=== PATIENT | female | born 1985 | race American Indian/Alaskan Native ===

== ENCOUNTER 2018-12-21 11:37 | Emergency (ER) | payer MEDICAID, OTHER ==
--- NOTE | 2018-12-21 11:45 | Emergency Department Report ---
Blank Doc - Documentation Documentation: 33 y/o female comes in for blood in urine, abdominal pain, left eye issues. orders have been placed.
[2018-12-21] MEDS ORDERED: TETRACAINE 0.5% OU PRN (12:49)
[2018-12-21 13:06] LABS: Bacteria,Urine 1+ /HPF (Negative); Bilirubin,Urine NEG (Negative); Blood,Urine LG (Negative); Color,Urine Amber (Yellow); Mucus,Urine 3+ /HPF
[2018-12-21 13:07] LABS: RBC,Urine > 182.0 /HPF (0.0-6.0)
[2018-12-21 13:09] LABS: Basophils % (Auto) 0.6 % (0.0-1.8); Eosinophils # (Auto) 0.2 K/mm3 (0.0-0.4); Eosinophils % (Auto) 3.3 % (0.0-4.3); Hematocrit 35.7 % (30.3-42.9); Hemoglobin 11.6 gm/dl (10.1-14.3); Lymphocytes # (Auto) 2.8 K/mm3 (1.2-5.4); Lymphocytes % (Auto) 37.7 % (13.4-35.0); Mean Corpuscular HGB Conc 33 % (30-34); Mean Corpuscular Volume 82 fl (79-97); Monocytes # (Auto) 0.5 K/mm3 (0.0-0.8); Monocytes % (Auto) 6.5 % (0.0-7.3); Platelet Count 344 K/mm3 (140-440); Red Blood Count 4.33 M/mm3 (3.65-5.03); Red Cell Distribution Width 16.5 % (13.2-15.2)
[2018-12-21 13:09] LABS: HCG Qualitative,Urine Negative (Negative)
[2018-12-21 13:14] LABS: Alanine Aminotransferase 20 units/L (7-56); Albumin 3.5 g/dL (3.9-5); BUN/Creatinine Ratio 9; Blood Urea Nitrogen 6 mg/dL (7-17); Calcium 8.8 mg/dL (8.4-10.2); Hemolysis Index 6
--- NOTE | 2018-12-21 13:14 | Emergency Department Report ---
ED General Adult HPI - General Chief complaint: Urogenital-Female Stated complaint: BLOOD IN URINE/COUGH/LEFT EYE PAIN Time Seen by Provider: 12/21/18 12:08 Source: patient Mode of arrival: Ambulatory Limitations: No Limitations - History of Present Illness Initial comments: Patient presents to the emergency department with multiple chief complaints. P atient complains of left eye burning with tearing. Patient also complains of abdominal pain and a dry cough for the last 2 weeks. Patient's abdominal pain started 3 days ago. Patient denies any nausea or vomiting. Patient also denies diarrhea. -: Gradual Location: abdomen Radiation: non-radiation Severity scale (0 -10): 3 Quality: aching Consistency: constant Improves with: none Worsens with: none Associated Symptoms: denies other symptoms Treatments Prior to Arrival: none - Related Data Previous Rx's Medication Instructions Recorded Last Taken Type Fluconazole [Diflucan] 150 mg PO DAILY #7 tablet 08/04/18 Unknown Rx cefUROXime [Ceftin] 500 mg PO Q12H #28 tablet 08/04/18 Unknown Rx ALBUTEROL Inhaler (OR & NICU) 2 puff IH Q4HR PRN #1 inhalation 12/21/18 Unknown Rx [ProAir HFA Inhaler] HYDROcodone/APAP 5-325 [[place] 1 each PO Q6HR PRN #12 tablet 12/21/18 Unknown Rx 5/325] Polymyxin B Sulf/Trimethoprim 2 drop OP Q3HR #1 drops 12/21/18 Unknown Rx [Polytrim Eye Drops 60872kkmxa/0.1%] levoFLOXacin [Levaquin] 750 mg PO QDAY #7 tablet 12/21/18 Unknown Rx Allergies Allergy/AdvReac Type Severity Reaction Status Date / Time No Known Allergies Allergy Verified 12/21/18 16:19 ED Review of Systems ROS: Stated complaint: BLOOD IN URINE/COUGH/LEFT EYE PAIN Other details as noted in HPI Comment: All other systems reviewed and negative Constitutional: denies: chills, fever Eyes: eye pain. denies: eye discharge, vision change ENT: denies: ear pain, throat pain Respiratory: cough. denies: shortness of breath, wheezing Cardiovascular: denies: chest pain, palpitations Endocrine: no symptoms reported Gastrointestinal: abdominal pain. denies: nausea, diarrhea Genitourinary: denies: urgency, dysuria, discharge Musculoskeletal: denies: back pain, joint swelling, arthralgia Skin: denies: rash, lesions Neurological: denies: headache, weakness, paresthesias Psychiatric: denies: anxiety, depression Hematological/Lymphatic: denies: easy bleeding, easy bruising ED Past Medical Hx - Past Medical History Previous Medical History?: No Additional medical history: obese - Surgical History Past Surgical History?: No - Social History Smoking Status: Current Every Day Smoker Substance Use Type: None - Medications Home Medications: Home Medications Medication Instructions Recorded Confirmed Last Taken Type Fluconazole [Diflucan] 150 mg PO DAILY #7 tablet 08/04/18 Unknown Rx cefUROXime [Ceftin] 500 mg PO Q12H #28 tablet 08/04/18 Unknown Rx ALBUTEROL Inhaler (OR & NICU) 2 puff IH Q4HR PRN #1 inhalation 12/21/18 Unknown Rx [ProAir HFA Inhaler] HYDROcodone/APAP 5-325 [[place] 1 each PO Q6HR PRN #12 tablet 12/21/18 Unknown Rx 5/325] Polymyxin B Sulf/Trimethoprim 2 drop OP Q3HR #1 drops 12/21/18 Unknown Rx [Polytrim Eye Drops 29622lgemx/0.1%] levoFLOXacin [Levaquin] 750 mg PO QDAY #7 tablet 12/21/18 Unknown Rx ED Physical Exam - General Limitations: No Limitations General appearance: alert, in no apparent distress - Head Head exam: Present: atraumatic, normocephalic - Eye Eye exam: Present: normal appearance, PERRL, EOMI, other (left corneal abrasion) - ENT ENT exam: Present: mucous membranes moist - Neck Neck exam: Present: normal inspection - Respiratory Respiratory exam: Present: wheezes. Absent: respiratory distress - Cardiovascular Cardiovascular Exam: Present: regular rate, normal rhythm. Absent: systolic murmur, diastolic murmur, rubs, gallop - GI/Abdominal GI/Abdominal exam: Present: soft, normal bowel sounds. Absent: distended, tenderness - Extremities Exam Extremities exam: Present: normal inspection - Back Exam Back exam: Present: normal inspection - Neurological Exam Neurological exam: Present: alert, oriented X3, CN II-XII intact. Absent: motor sensory deficit - Psychiatric Psychiatric exam: Present: normal affect, normal mood - Skin Skin exam: Present: warm, dry, intact, normal color. Absent: rash ED Course Vital Signs 12/21/18 12/21/18 12/21/18 11:44 12:03 14:06 Temperature 97.9 F 98.2 F Pulse Rate 116 H 101 H Respiratory 20 18 19 Rate Blood Pressure 133/97 Blood Pressure 141/82 [Right] O2 Sat by Pulse 96 100 Oximetry ED Medical Decision Making - Lab Data Result diagrams: 12/21/18 12:51 12/21/18 12:51 Lab Results 12/21/18 12/21/18 12/21/18 Range/Units 12:39 12:51 12:51 WBC 7.3 (4.5-11.0) K/mm3 RBC 4.33 (3.65-5.03) M/mm3 Hgb 11.6 (10.1-14.3) gm/dl Hct 35.7 (30.3-42.9) % MCV 82 (79-97) fl MCH 27 L (28-32) pg MCHC 33 (30-34) % RDW 16.5 H (13.2-15.2) % Plt Count 344 (140-440) K/mm3 Lymph % (Auto) 37.7 H (13.4-35.0) % [place] % (Auto) 6.5 (0.0-7.3) % Eos % (Auto) 3.3 (0.0-4.3) % Baso % (Auto) 0.6 (0.0-1.8) % Lymph # 2.8 (1.2-5.4) K/mm3 [place] # 0.5 (0.0-0.8) K/mm3 Eos # 0.2 (0.0-0.4) K/mm3 Baso # 0.0 (0.0-0.1) K/mm3 Seg Neutrophils % 51.9 (40.0-70.0) % Seg Neutrophils # 3.8 (1.8-7.7) K/mm3 Sodium 142 (137-145) mmol/L Potassium 4.2 (3.6-5.0) mmol/L Chloride 105.6 (98-107) mmol/L Carbon Dioxide 26 (22-30) mmol/L Anion Gap 15 mmol/L BUN 6 L (7-17) mg/dL Creatinine 0.7 (0.7-1.2) mg/dL Estimated GFR > 60 ml/min BUN/Creatinine Ratio 9 % Glucose 164 H (65-100) mg/dL Calcium 8.8 (8.4-10.2) mg/dL Total Bilirubin 0.20 (0.1-1.2) mg/dL AST 21 (5-40) units/L ALT 20 (7-56) units/L Alkaline Phosphatase 94 (35-129) units/L Total Protein 6.8 (6.3-8.2) g/dL Albumin 3.5 L (3.9-5) g/dL Albumin/Globulin Ratio 1.1 % Lipase 21 (13-60) units/L Urine Color Annamarie (Yellow) Urine Turbidity Cloudy (Clear) Urine pH 5.0 (5.0-7.0) Ur Specific [place] 1.031 H (1.003-1.030) Urine Protein 100 mg/dl (Negative) mg/dL Urine Glucose (UA) 50 (Negative) mg/dL Urine Ketones Neg (Negative) mg/dL Urine Blood Lg (Negative) Urine Nitrite Neg (Negative) Urine Bilirubin Neg (Negative) Urine Urobilinogen 2.0 (<2.0) mg/dL Ur Leukocyte Esterase Mod (Negative) Urine WBC (Auto) 49.0 H (0.0-6.0) /HPF Urine RBC (Auto) > 182.0 (0.0-6.0) /HPF U Epithel Cells (Auto) 60.0 H (0-13.0) /HPF Urine Bacteria (Auto) 1+ (Negative) /HPF Urine Mucus 3+ /HPF Urine HCG, Qual Negative (Negative) - Radiology Data Radiology results: report reviewed - Medical Decision Making results discussed with patient Critical care attestation.: If time is entered above; I have spent that time in minutes in the direct care of this critically ill patient, excluding procedure time. ED Disposition Clinical Impression: Corneal abrasion Disposition: DC-01 TO HOME OR SELFCARE Is pt being admited?: No Does the pt Need Aspirin: No Condition: Stable Instructions: Corneal Abrasion (ED), Acute Bronchitis (ED), Urinary Tract Infection in Women (ED) Additional Instructions: return if worse Prescriptions: Polymyxin B Sulf/Trimethoprim [Polytrim Eye Drops 29233zhwmi/0.1%] 2 drop OP Q3HR #1 drops Referrals: PRIMARY CARE, [Referring] - 3-5 Days Time of Disposition: 16:20
[2018-12-21 14:07] VITALS: BP 141/82
--- NOTE | 2018-12-21 14:51 | XRay Report ---
Single view chest: History: Cough. Findings: Cardiomegaly. Trachea is midline. Mild pulmonary venous congestion. No consolidation or pleural effusion. Impression: Cardiomegaly with mild pulmonary venous congestion.
[2018-12-21] MEDS ORDERED: NORCO 10/325 PO ONE (16:12)
[2018-12-21] MEDS ORDERED: ZOFRAN ODT PO ONE (16:12)
[2018-12-21] MEDS ORDERED: ZOFRAN ODT ONE (16:15)
[2018-12-21] MEDS ORDERED: NORCO 10/325 ONE (16:15)
== END 2018-12-21 17:05 | disposition home or self-care (01) ==
LOC: ED 11:37
DX: S05.02XA Injury of conjunctiva and corneal abrasion without foreign body, left eye, initial encounter (principal); F17.200 Nicotine dependence, unspecified, uncomplicated; X58.XXXA Exposure to other specified factors, initial encounter; Y93.89 Activity, other specified; Y92.89 Other specified places as the place of occurrence of the external cause; Y99.8 Other external cause status
CPT/HCPCS: 36415; 71045; 80053; 81001; 81025; 83690; 85025; Q0162

== ENCOUNTER 2019-08-26 05:42 | Emergency (ER) | payer SELFPAY ==
[2019-08-26 06:58] LABS: Bilirubin,Urine NEG (Negative); Blood,Urine LG (Negative); Color,Urine Straw (Yellow); Protein,Urine <15 mg/dL mg/dL (Negative); Urobilinogen,Urine < 2.0 mg/dL (<2.0)
[2019-08-26 07:01] LABS: HCG Qualitative,Urine Negative (Negative)
--- NOTE | 2019-08-26 07:36 | Emergency Department Report ---
ED Female HPI - General Chief complaint: Allergic Reaction Stated complaint: POSS ALLERGIC REACTION/VAGINAL PAIN Time Seen by Provider: 08/26/19 07:14 Source: patient Mode of arrival: Ambulatory Limitations: No Limitations - History of Present Illness Initial comments: patient is a 34-year-old female presents emergency room with complaints of vaginal itching and dryness that began a few days ago. She has associated vaginal irritation and dysuria. Patient was evaluated in the emergency department on 08/20/19 and diagnosed with UTI and given a prescription for Bactrim. She had a wet prep performed which was negative. Her G/C swabs were also negative. She denies any fever, nausea, vomiting, abdominal pain. - Related Data Previous Rx's Medication Instructions Recorded Last Taken Type Fluconazole [Diflucan] 150 mg PO DAILY #7 tablet 08/04/18 Unknown Rx cefUROXime [Ceftin] 500 mg PO Q12H #28 tablet 08/04/18 Unknown Rx ALBUTEROL Inhaler (OR & NICU) 2 puff IH Q4HR PRN #1 inhalation 12/21/18 Unknown Rx [ProAir HFA Inhaler] HYDROcodone/APAP 5-325 [[place] 1 each PO Q6HR PRN #12 tablet 12/21/18 Unknown Rx 5/325] Polymyxin B Sulf/Trimethoprim 2 drop OP Q3HR #1 drops 12/21/18 Unknown Rx [Polytrim Eye Drops 66063xpbbm/0.1%] levoFLOXacin [Levaquin] 750 mg PO QDAY #7 tablet 12/21/18 Unknown Rx Sulfamethoxazole/Trimethoprim 1 each PO BID #14 tablet 08/20/19 Unknown Rx [Bactrim DS TAB] Fluconazole [Diflucan TAB] 150 mg PO ONCE #1 tablet 08/26/19 Unknown Rx Miconazole 2% [Monistat-Derm] 1 applicatio TP BID #1 tube 08/26/19 Unknown Rx cephALEXin [Keflex] 500 mg PO BID 7 Days #14 cap 08/26/19 Unknown Rx Allergies Allergy/AdvReac Type Severity Reaction Status Date / Time No Known Allergies Allergy Verified 12/21/18 16:19 ED Review of Systems ROS: Stated complaint: POSS ALLERGIC REACTION/VAGINAL PAIN Other details as noted in HPI Comment: All other systems reviewed and negative ED Past Medical Hx - Past Medical History Previous Medical History?: Yes Hx Diabetes: Yes Additional medical history: obese - Surgical History Past Surgical History?: No - Social History Smoking Status: Current Every Day Smoker - Medications Home Medications: Home Medications Medication Instructions Recorded Confirmed Last Taken Type Fluconazole [Diflucan] 150 mg PO DAILY #7 tablet 08/04/18 Unknown Rx cefUROXime [Ceftin] 500 mg PO Q12H #28 tablet 08/04/18 Unknown Rx ALBUTEROL Inhaler (OR & NICU) 2 puff IH Q4HR PRN #1 inhalation 12/21/18 Unknown Rx [ProAir HFA Inhaler] HYDROcodone/APAP 5-325 [[place] 1 each PO Q6HR PRN #12 tablet 12/21/18 Unknown Rx 5/325] Polymyxin B Sulf/Trimethoprim 2 drop OP Q3HR #1 drops 12/21/18 Unknown Rx [Polytrim Eye Drops 37080eqcma/0.1%] levoFLOXacin [Levaquin] 750 mg PO QDAY #7 tablet 12/21/18 Unknown Rx Sulfamethoxazole/Trimethoprim 1 each PO BID #14 tablet 08/20/19 Unknown Rx [Bactrim DS TAB] Fluconazole [Diflucan TAB] 150 mg PO ONCE #1 tablet 08/26/19 Unknown Rx Miconazole 2% [Monistat-Derm] 1 applicatio TP BID #1 tube 08/26/19 Unknown Rx cephALEXin [Keflex] 500 mg PO BID 7 Days #14 cap 08/26/19 Unknown Rx ED Physical Exam - General Limitations: No Limitations General appearance: alert, in no apparent distress - Head Head exam: Present: atraumatic, normocephalic - Eye Eye exam: Present: normal appearance - ENT ENT exam: Present: mucous membranes moist - Respiratory Respiratory exam: Present: normal lung sounds bilaterally. Absent: respiratory distress, wheezes, rales, rhonchi, stridor, chest wall tenderness, accessory muscle use, decreased breath sounds, prolonged expiratory - Cardiovascular Cardiovascular Exam: Present: regular rate, normal rhythm, normal heart sounds. Absent: systolic murmur, diastolic murmur, rubs, gallop - GI/Abdominal GI/Abdominal exam: Present: soft, normal bowel sounds. Absent: distended, tenderness, guarding, rebound, rigid - Back Exam Back exam: Present: CVA tenderness (L). Absent: CVA tenderness (R) - Neurological Exam Neurological exam: Present: alert, oriented X3 - Psychiatric Psychiatric exam: Present: normal affect, normal mood - Skin Skin exam: Present: warm, dry, intact ED Course Vital Signs 08/26/19 08/26/19 05:46 07:52 Temperature 97.8 F 98.5 F Pulse Rate 116 H 97 H Respiratory 18 16 Rate Blood Pressure 149/95 Blood Pressure 156/101 [Left] O2 Sat by Pulse 97 99 Oximetry ED Medical Decision Making - Lab Data Lab Results 08/26/19 Range/Units 06:30 Urine Color Straw (Yellow) Urine Turbidity Clear (Clear) Urine pH 6.0 (5.0-7.0) Ur Specific [place] 1.032 H (1.003-1.030) Urine Protein <15 mg/dl (Negative) mg/dL Urine Glucose (UA) >=500 (Negative) mg/dL Urine Ketones Neg (Negative) mg/dL Urine Blood Lg (Negative) Urine Nitrite Neg (Negative) Urine Bilirubin Neg (Negative) Urine Urobilinogen < 2.0 (<2.0) mg/dL Ur Leukocyte Esterase Sm (Negative) Urine WBC (Auto) 12.0 H (0.0-6.0) /HPF Urine RBC (Auto) 35.0 (0.0-6.0) /HPF U Epithel Cells (Auto) 4.0 (0-13.0) /HPF Urine HCG, Qual Negative (Negative) - Medical Decision Making patient is a 34-year-old female presents emergency room with complaints of vaginal itching and dryness that began a few days ago. She has associated vaginal irritation and dysuria. Patient was evaluated in the emergency department on 08/20/19 and diagnosed with UTI and given a prescription for Bactrim. She had a wet prep performed which was negative. Her G/C swabs were also negative. She denies any fever, nausea, vomiting, abdominal pain. initial vitals with elevated HR which improved upon repeat. pts UA continues to have evidence of UTI, will change patients bactrim to keflex. pt most likely has yeast infection secondary to recent abx use. will give pt fluconazole pill and miconazole ointment. advised patient to please use medication as prescribed. Stop taking the Bactrim and began taking Keflex. If the yeast pill does not work repeat in 3 days. increase your water intake. May take probiotics or eat yogurt. Follow up with her [facility] CH[facility] SCIENTIST in the next 2-3 days for reexamination. Return to the emergency room for any new or worsening symptoms. upon discharge, pts blood pressure mildly elevated, pt given [facility] to fol low up with a PCP, discussed to take her bp three times a day, eat a low sodium diet, incorporate daily exercise and increase water intake. - Differential Diagnosis UTI, yeast, BV, vaginitis Critical care attestation.: If time is entered above; I have spent that time in minutes in the direct care of this critically ill patient, excluding procedure time. ED Disposition Clinical Impression: UTI (urinary tract infection) Qualifiers: Urinary tract infection type: acute cystitis Hematuria presence: with hematuria Qualified Code(s): N30.01 - Acute cystitis with hematuria Vaginitis Qualifiers: Chronicity: acute Qualified Code(s): N76.0 - Acute vaginitis Disposition: TO HOME OR SELFCARE Is pt being admited?: No Does the pt Need Aspirin: No Condition: Stable Instructions: Urinary Tract Infection in Women (ED), Vaginitis (ED) Additional Instructions: please use medication as prescribed. Stop taking the Bactrim and began taking Keflex. If the yeast pill does not work repeat in 3 days. increase your water intake. May take probiotics or eat yogurt. Follow up with her [facility] ANALYTICS CHIEF SCIENTIST in the next 2-3 days for reexamination. Return to the emergency room for any new or worsening symptoms. Prescriptions: Fluconazole [Diflucan TAB] 150 mg PO ONCE #1 tablet cephALEXin [Keflex] 500 mg PO BID 7 Days #14 cap Miconazole 2% [Monistat-Derm] 1 applicatio TP BID #1 tube Referrals: [facility] [Outside] - 2-3 Days [facility] [Provider Group] - 2-3 Days [facility] [Provider Group] - 2-3 Days Time of Disposition: 07:37 Print Language: GIBRALTARIAN
[2019-08-26 07:53] VITALS: BP 156/101
== END 2019-08-26 07:54 | disposition home or self-care (01) ==
LOC: ED 05:42
DX: N76.0 Acute vaginitis (principal); N39.0 Urinary tract infection, site not specified; E11.9 Type 2 diabetes mellitus without complications; F17.200 Nicotine dependence, unspecified, uncomplicated; Z79.899 Other long term (current) drug therapy
CPT/HCPCS: 81001; 81025; 87086

== ENCOUNTER 2019-09-19 18:09 | Emergency (ER) | payer SELFPAY ==
[2019-09-19 18:29] VITALS: BP 149/95
--- NOTE | 2019-09-19 18:37 | Emergency Department Report ---
Blank Doc - Documentation Documentation: 34-year-old female that presents with uncontrolled hyperglycemia. This initial assessment/diagnostic orders/clinical plan/treatment(s) is/are subject to change based on patient's health status, clinical progression and re- assessment by fellow clinical providers in the ED. Further treatment and workup at subsequent clinical providers discretion. Patient/guardians urged not to elope from the ED as their condition may be serious if not clinically assessed and managed. Initial orders include: 1- Patient sent to [facility] for further evaluation and treatment 2- labs 3- UA
[2019-09-19 19:04] LABS: Basophils # (Auto) 0.1 K/mm3 (0.0-0.1); Basophils % (Auto) 0.9 % (0.0-1.8); Eosinophils # (Auto) 0.2 K/mm3 (0.0-0.4); Eosinophils % (Auto) 1.6 % (0.0-4.3); Hematocrit 38.2 % (30.3-42.9); Hemoglobin 12.8 gm/dl (10.1-14.3); Lymphocytes # (Auto) 3.5 K/mm3 (1.2-5.4); Lymphocytes % (Auto) 32.1 % (13.4-35.0); Mean Corpuscular HGB Conc 34 % (30-34); Mean Corpuscular Volume 82 fl (79-97); Monocytes # (Auto) 0.6 K/mm3 (0.0-0.8); Monocytes % (Auto) 5.1 % (0.0-7.3); Platelet Count 338 K/mm3 (140-440); Red Blood Count 4.67 M/mm3 (3.65-5.03); Red Cell Distribution Width 16.2 % (13.2-15.2)
[2019-09-19 19:12] LABS: BUN/Creatinine Ratio 15; Blood Urea Nitrogen 9 mg/dL (7-17); Calcium 9.8 mg/dL (8.4-10.2); Hemolysis Index 10
--- NOTE | 2019-09-19 20:03 | Emergency Department Report ---
ED General Adult HPI - General Chief complaint: Hyperglycemia Stated complaint: SUGAR 440, RASH Time Seen by Provider: 09/19/19 18:38 Source: patient Mode of arrival: Ambulatory Limitations: No Limitations - History of Present Illness Initial comments: 34-year-old morbidly obese female presents to the emergency room complaining of hyperglycemia and rash. Patient states that her finger stick at home was 440. Patient reports that she is on metformin and insulin once a week through a diabetic study. Patient currently does not have a primary care provider. Patient reports that her rash is located in her groin area itches very bad. Patient states that she has area of skin that has sloughed off and gets irritated when she urinates. She is currently homeless and reports she does not have much means to eat a healthy diet or able to prepare her own food. Patient does report she has an appointment with Dr. Roldan Schwartz on Tuesday. She was seen here in 08/26/2019 for the same complaint. Patient's blood sugar in triage was 290. Onset/Timin -: month(s) Location: genitals Quality: burning Consistency: constant Improves with: none Worsens with: other (urinating) Associated Symptoms: denies other symptoms - Related Data Previous Rx's Medication Instructions Recorded Last Taken Type Fluconazole [Diflucan] 150 mg PO DAILY #7 tablet 08/04/18 Unknown Rx cefUROXime [Ceftin] 500 mg PO Q12H #28 tablet 08/04/18 Unknown Rx Albuterol INH(or & Nicu Only) 2 puff IH Q4HR PRN #1 inhalation 12/21/18 Unknown Rx [ProAir HFA Inhaler] HYDROcodone/APAP 5-325 [[place] 1 each PO Q6HR PRN #12 tablet 12/21/18 Unknown Rx 5/325] Polymyxin B Sulf/Trimethoprim 2 drop OP Q3HR #1 drops 12/21/18 Unknown Rx [Polytrim Eye Drops 13250xiwsd/0.1%] levoFLOXacin [Levaquin] 750 mg PO QDAY #7 tablet 12/21/18 Unknown Rx Sulfamethoxazole/Trimethoprim 1 each PO BID #14 tablet 08/20/19 Unknown Rx [Bactrim DS TAB] Fluconazole [Diflucan TAB] 150 mg PO ONCE #1 tablet 08/26/19 Unknown Rx Miconazole 2% [Monistat-Derm] 1 applicatio TP BID #1 tube 08/26/19 Unknown Rx cephALEXin [Keflex] 500 mg PO BID 7 Days #14 cap 08/26/19 Unknown Rx Fluconazole [Diflucan TAB] 200 mg PO QDAY #3 tablet 09/19/19 Unknown Rx Nystatin [Nystop Powder] 1 applicatio TP TID #2 bottle 09/19/19 Unknown Rx Allergies Allergy/AdvReac Type Severity Reaction Status Date / Time No Known Allergies Allergy Verified 12/21/18 16:19 ED Review of Systems ROS: Stated complaint: SUGAR 440, RASH Other details as noted in HPI ED Past Medical Hx - Past Medical History Previous Medical History?: Yes Hx Diabetes: Yes Additional medical history: obese - Surgical History Past Surgical History?: No - Social History Smoking Status: Never Smoker Substance Use Type: None - Medications Home Medications: Home Medications Medication Instructions Recorded Confirmed Last Taken Type Fluconazole [Diflucan] 150 mg PO DAILY #7 tablet 08/04/18 Unknown Rx cefUROXime [Ceftin] 500 mg PO Q12H #28 tablet 08/04/18 Unknown Rx Albuterol INH(or & Nicu Only) 2 puff IH Q4HR PRN #1 inhalation 12/21/18 Unknown Rx [ProAir HFA Inhaler] HYDROcodone/APAP 5-325 [[place] 1 each PO Q6HR PRN #12 tablet 12/21/18 Unknown Rx 5/325] Polymyxin B Sulf/Trimethoprim 2 drop OP Q3HR #1 drops 12/21/18 Unknown Rx [Polytrim Eye Drops 96075kshvn/0.1%] levoFLOXacin [Levaquin] 750 mg PO QDAY #7 tablet 12/21/18 Unknown Rx Sulfamethoxazole/Trimethoprim 1 each PO BID #14 tablet 08/20/19 Unknown Rx [Bactrim DS TAB] Fluconazole [Diflucan TAB] 150 mg PO ONCE #1 tablet 08/26/19 Unknown Rx Miconazole 2% [Monistat-Derm] 1 applicatio TP BID #1 tube 08/26/19 Unknown Rx cephALEXin [Keflex] 500 mg PO BID 7 Days #14 cap 08/26/19 Unknown Rx Fluconazole [Diflucan TAB] 200 mg PO QDAY #3 tablet 09/19/19 Unknown Rx Nystatin [Nystop Powder] 1 applicatio TP TID #2 bottle 09/19/19 Unknown Rx ED Physical Exam - General Limitations: No Limitations General appearance: alert, in no apparent distress, obese - Head Head exam: Present: atraumatic, normocephalic - Eye Eye exam: Present: normal appearance - ENT ENT exam: Present: mucous membranes moist - Neck Neck exam: Present: normal inspection - Respiratory Respiratory exam: Present: normal lung sounds bilaterally. Absent: respiratory distress - Cardiovascular Cardiovascular Exam: Present: regular rate, normal rhythm. Absent: systolic murmur, diastolic murmur, rubs, gallop - External exam: Present: erythema - Neurological Exam Neurological exam: Present: alert, oriented X3 - Psychiatric Psychiatric exam: Present: normal affect, normal mood - Skin Skin exam: Present: rash - Expanded Skin Exam Expanded Distribution of rash: genitals Description of rash: Present: tenderness, erythematous ED Course Vital Signs 09/19/19 18:26 Temperature 98.1 F Pulse Rate 110 H Respiratory 18 Rate Blood Pressure 149/95 O2 Sat by Pulse 100 Oximetry ED Medical Decision Making - Lab Data Result diagrams: 09/19/19 18:43 09/19/19 18:43 - Medical Decision Making 34-year-old morbidly obese female presents to the emergency room complaining of hyperglycemia and rash. Patient states that her finger stick at home was 440. Patient reports that she is on metformin and insulin once a week through a diabetic study. Patient currently does not have a primary care provider. Patient reports that her rash is located in her groin area itches very bad. Patient states that she has area of skin that has sloughed off and gets irritated when she urinates. She is currently homeless and reports she does not have much means to eat a healthy diet or able to prepare her own food. Patient does report she has an appointment with Dr. Roldan Schwartz on Tuesday. She was seen here in 08/26/2019 for the same complaint. Patient's blood sugar in triage was 290. Patient will be discharged home on fluconazole 200 mg by mouth daily for 3 days and nystatin powder and a recommendation for [id number] Vagisil powder. I discussed with patient to keep her appointment with Dr. Roldan Schwartz [employer]INE [employer]. I also discussed the patient to follow up with Dr. Seaman general surgeon regarding possible bariatric surgery. And also referred patient to Dr. Engel internal medicine for chronic disease management and weight loss. Critical care attestation.: If time is entered above; I have spent that time in minutes in the direct care of this critically ill patient, excluding procedure time. ED Disposition Clinical Impression: Tinea of groin, Severely overweight Diabetes Qualifiers: Diabetes mellitus type: type 2 Diabetes mellitus intermediate frame tender insulin use: without intermediate frame tender use Diabetes mellitus complication status: with skin complications Disposition: - TO HOME OR SELFCARE Is pt being admited?: No Does the pt Need Aspirin: No Condition: Stable Instructions: Jock Itch (ED), Diabetes Mellitus Type 2 in Adults (ED) Additional Instructions: Please use [id number]-[id number] Vagisil powder to groin area to help with the moisture. Please work on eating a healthy diet and cyst with help decrease your sugar in her blood system which should get her stabilized her diabetes so he will not continue to get Yeast infections. Keep your appointment Dr. Roldan Schwartz. Please make an appointment with Dr. Knight and Dr. Seaman. Prescriptions: Fluconazole [Diflucan TAB] 200 mg PO QDAY #3 tablet Nystatin [Nystop Powder] 1 applicatio TP TID #2 bottle Referrals: PRIMARY CARE, [Primary Care Provider] - 3-5 Days MONIKA LARA MD [Staff Physician] - 3-5 Days GEOVANNA SEAMAN MD [Staff Physician] - 3-5 Days ROLDAN SCHWARTZ MD [Staff Physician] - 3-5 Days
[2019-09-19 20:34] LABS: Bilirubin,Urine NEG (Negative); Blood,Urine LG (Negative); Color,Urine Red (Yellow); RBC,Urine > 182.0 /HPF (0.0-6.0); Urobilinogen,Urine < 2.0 mg/dL (<2.0)
== END 2019-09-19 20:56 | disposition home or self-care (01) ==
LOC: ED 18:09
DX: B35.6 Tinea cruris (principal); E66.3 Overweight; E11.65 Type 2 diabetes mellitus with hyperglycemia; Z79.899 Other long term (current) drug therapy; Z79.4 Long term (current) use of insulin
CPT/HCPCS: 36415; 80048; 81001; 82805; 82962; 85025; 87086

== ENCOUNTER 2019-11-21 01:43 | Emergency (ER) | payer SELFPAY ==
[2019-11-21 01:54] VITALS: BP 135/87
--- NOTE | 2019-11-21 02:47 | Emergency Department Report ---
ED HPI - General Chief complaint: Vaginal Bleeding Stated complaint: 11WEEKS PREG,ABDOMINAL PAIN,VAGINAL BLEEDING Time Seen by Provider: 11/21/19 02:40 Source: patient Mode of arrival: Ambulatory Limitations: No Limitations - History of Present Illness Initial comments: Patient is a 34-year-old female that presents emergency room with complaints of lower abdominal cramping and vaginal bleeding. Patient states started at 11 PM tonight. Patient states that the cramping is intense. Patient states she is 11 weeks . Patient states she has not had any over the history. Patient denies chest pain or shortness of breath patient denies fever and chills. Patient states that her vaginal bleeding is heavy. Patient states it started ou t as spotting and is worsening. Patient denies recent travel. Patient denies recent international travel. Patient denies exposure to the novel coronavirus. Patient denies sick contacts. Patient denies fever and chills. Patient denies cough. Patient denies diarrhea. Patient denies coming in contact with anybody with symptoms of the novel coronavirus. MD Complaint: abdominal pain, vaginal bleeding -: Sudden Location: pelvis Radiation: none Severity: severe Severity scale (0 -10): 10 Quality: cramping Consistency: constant Improves with: rest Worsens with: movement Associated symptoms: vaginal bleeding, abdominal pain. denies: nausea/vomiting, vaginal discharge, dysuria, headache, vision changes, malaise, dysparuenia, rash, seizure, shortness of breath, syncope, weakness Vaginal bleeding: heavy :: Yes Number of weeks : 11 OB History - Previous Pregnancies: miscarriage Pre-tez care: none - Related Data : 3 Para: 0 Ab: 2 Previous Rx's Medication Instructions Recorded Last Taken Type Fluconazole [Diflucan] 150 mg PO DAILY #7 tablet 08/04/18 Unknown Rx cefUROXime [Ceftin] 500 mg PO Q12H #28 tablet 08/04/18 Unknown Rx Albuterol INH(or & Nicu Only) 2 puff IH Q4HR PRN #1 inhalation 12/21/18 Unknown Rx [ProAir HFA Inhaler] Polymyxin B Sulf/Trimethoprim 2 drop OP Q3HR #1 drops 12/21/18 Unknown Rx [Polytrim Eye Drops [id number]/0.1%] levoFLOXacin [Levaquin] 750 mg PO QDAY #7 tablet 12/21/18 Unknown Rx Sulfamethoxazole/Trimethoprim 1 each PO BID #14 tablet 08/20/19 Unknown Rx [Bactrim DS TAB] Fluconazole [Diflucan TAB] 150 mg PO ONCE #1 tablet 08/26/19 Unknown Rx Miconazole 2% [Monistat-Derm] 1 applicatio TP BID #1 tube 08/26/19 Unknown Rx cephALEXin [Keflex] 500 mg PO BID 7 Days #14 cap 08/26/19 Unknown Rx Fluconazole [Diflucan TAB] 200 mg PO QDAY #3 tablet 09/19/19 Unknown Rx Nystatin [Nystop Powder] 1 applicatio TP TID #2 bottle 09/19/19 Unknown Rx HYDROcodone/APAP 5-325 [[place] 1 each PO Q6HR PRN #8 tablet 11/21/19 Unknown Rx 5-325 mg TAB] Allergies Allergy/AdvReac Type Severity Reaction Status Date / Time No Known Allergies Allergy Verified 12/21/18 16:19 ED Review of Systems ROS: Stated complaint: 11WEEKS PREG,ABDOMINAL PAIN,VAGINAL BLEEDING Other details as noted in HPI Constitutional: denies: chills, fever Eyes: denies: eye pain, eye discharge, vision change ENT: denies: ear pain, throat pain Respiratory: denies: cough, shortness of breath, wheezing Cardiovascular: denies: chest pain, palpitations Endocrine: no symptoms reported Gastrointestinal: abdominal pain. denies: nausea, diarrhea Genitourinary: as per HPI. denies: urgency, dysuria, discharge Musculoskeletal: denies: back pain, joint swelling, arthralgia Skin: denies: rash, lesions Neurological: denies: headache, weakness, paresthesias Psychiatric: denies: anxiety, depression Hematological/Lymphatic: denies: easy bleeding, easy bruising ED Past Medical Hx - Past Medical History Previous Medical History?: Yes Hx Diabetes: Yes Additional medical history: obese. miscarriage x2 - Surgical History Past Surgical History?: No Additional Surgical History: D&C 2018 - Family History Family history: no significant - Social History Smoking Status: Current Every Day Smoker Substance Use Type: Marijuana - Medications Home Medications: Home Medications Medication Instructions Recorded Confirmed Last Taken Type Fluconazole [Diflucan] 150 mg PO DAILY #7 tablet 08/04/18 Unknown Rx cefUROXime [Ceftin] 500 mg PO Q12H #28 tablet 08/04/18 Unknown Rx Albuterol INH(or & Nicu Only) 2 puff IH Q4HR PRN #1 inhalation 12/21/18 Unknown Rx [ProAir HFA Inhaler] Polymyxin B Sulf/Trimethoprim 2 drop OP Q3HR #1 drops 12/21/18 Unknown Rx [Polytrim Eye Drops 68406zmbop/0.1%] levoFLOXacin [Levaquin] 750 mg PO QDAY #7 tablet 12/21/18 Unknown Rx Sulfamethoxazole/Trimethoprim 1 each PO BID #14 tablet 08/20/19 Unknown Rx [Bactrim DS TAB] Fluconazole [Diflucan TAB] 150 mg PO ONCE #1 tablet 08/26/19 Unknown Rx Miconazole 2% [Monistat-Derm] 1 applicatio TP BID #1 tube 08/26/19 Unknown Rx cephALEXin [Keflex] 500 mg PO BID 7 Days #14 cap 08/26/19 Unknown Rx Fluconazole [Diflucan TAB] 200 mg PO QDAY #3 tablet 09/19/19 Unknown Rx Nystatin [Nystop Powder] 1 applicatio TP TID #2 bottle 09/19/19 Unknown Rx HYDROcodone/APAP 5-325 [[place] 1 each PO Q6HR PRN #8 tablet 11/21/19 Unknown Rx 5-325 mg TAB] ED Physical Exam - General Limitations: No Limitations General appearance: alert, in no apparent distress - Head Head exam: Present: atraumatic, normocephalic - Eye Eye exam: Present: normal appearance - ENT ENT exam: Present: mucous membranes moist - Neck Neck exam: Present: normal inspection - Respiratory Respiratory exam: Present: normal lung sounds bilaterally. Absent: respiratory distress - Cardiovascular Cardiovascular Exam: Present: regular rate, normal rhythm. Absent: systolic murmur, diastolic murmur, rubs, gallop - GI/Abdominal GI/Abdominal exam: Present: soft, tenderness (Suprapubic lower abdomen), normal bowel sounds - Extremities Exam Extremities exam: Present: normal inspection - Back Exam Back exam: Present: normal inspection - Neurological Exam Neurological exam: Present: alert, oriented X3 - Psychiatric Psychiatric exam: Present: normal affect, normal mood - Skin Skin exam: Present: warm, dry, intact, normal color. Absent: rash ED Course Vital Signs 11/21/19 11/21/19 01:45 03:09 Temperature 98 F Pulse Rate 101 H Respiratory 18 20 Rate Blood Pressure 135/87 O2 Sat by Pulse 96 98 Oximetry - Reevaluation(s) Reevaluation #1: I discussed all results and clinical findings with patient. I discussed plan of care with patient. Patient agrees with plan of care. Patient is stable for discharge. Patient will be discharged home. Patient given discharge instructions. Patient voiced understanding of discharge instructions. 11/21/19 04:33 ED Medical Decision Making - Lab Data Result diagrams: 11/21/19 03:00 11/21/19 03:00 - Radiology Data Radiology results: report reviewed US OB transvaginal INDICATION / CLINICAL INFORMATION: vaginal bleed in preg. COMPARISON: None available. FINDINGS: No intrauterine is identified. The uterus is normal in size and appearance. Endometrial canal measures 11 mm. The ovaries are normal in size and appearance. IMPRESSION: No intrauterine identified US OB <= 14 weeks fetus INDICATION / CLINICAL INFORMATION: Vaginal bleeding. COMPARISON: None available. FINDINGS: No intrauterine is identified. The uterus is normal in size. Endometrial canal measures 7 mm. The ovaries were not visualized. IMPRESSION: No evidence of an intrauterine - Medical Decision Making Patient is a 34-year-old female that presents emergency room with complaints of vaginal bleeding and lower abdominal cramping. Patient stated she had a previous ultrasound confirming a IUP. Patient states she is 11 weeks . Patient had a ultrasound done here and it shows a empty uterus. Patient's hCG is negative. Patient's labs are unremarkable. Patient clinical findings are consistent with a spontaneous miscarriage. Patient has no retained products of conception. Patient's stable for discharge. Patient discharged home. Patient given discharge instructions. - Differential Diagnosis Miscarriage, vaginal bleeding, abdominal cramps Critical care attestation.: If time is entered above; I have spent that time in minutes in the direct care of this critically ill patient, excluding procedure time. ED Disposition Clinical Impression: Abdominal cramps, Miscarriage, Vaginal bleeding, Hyperglycemia Abdominal pain Qualifiers: Abdominal location: lower abdomen, unspecified Qualified Code(s): R10.30 - Lower abdominal pain, unspecified Disposition: DC-01 TO HOME OR SELFCARE Is pt being admited?: No Does the pt Need Aspirin: No Condition: Stable Instructions: Spontaneous Miscarriage (ED), Diabetic Hyperglycemia (ED) Additional Instructions: Patient to follow-up with primary care in 2 to 3 days. Patient to follow-up with MED SURG NURSE in 2 to 3 days. Patient to rest. Patient to increase water. Patient to avoid strenuous exercise or heavy lifting until cleared by MED SURG NURSE. Nothing per vagina until cleared by MED SURG NURSE. Patient to take Tylenol or ibuprofen as needed for pain. Patient to take meds as directed. Patient to return to the ER if condition worsens, changes or new symptoms arise. Patient to monitor blood sugar and take blood sugar log to follow-up appointments. Patient to eat a diabetic diet. Prescriptions: HYDROcodone/APAP 5-325 [[place] 5-325 mg TAB] 1 each PO Q6HR PRN #8 tablet PRN Reason: Pain Referrals: PRIMARY CARE, [Primary Care Provider] - 2-3 Days Time of Disposition: 04:41
--- NOTE | 2019-11-21 02:49 | Ultrasound Report ---
US OB <= 14 weeks fetus INDICATION / CLINICAL INFORMATION: Vaginal bleeding. COMPARISON: None available. FINDINGS: No intrauterine is identified. The uterus is normal in size. Endometrial canal measures 7 m m. The ovaries were not visualized. IMPRESSION: No evidence of an intrauterine Signer Name: Arun Jimenez MD FACR Signed: 11/21/2019 2:45 AM Workstation Name: [id number]
[2019-11-21 02:52] LABS: Bilirubin,Urine NEG (Negative); Blood,Urine SM (Negative); Color,Urine Straw (Yellow); Protein,Urine <15 mg/dL mg/dL (Negative); Urobilinogen,Urine < 2.0 mg/dL (<2.0)
[2019-11-21 03:30] LABS: BUN/Creatinine Ratio 11; Blood Urea Nitrogen 8 mg/dL (7-17); Calcium 9.4 mg/dL (8.4-10.2); Hemolysis Index 18
[2019-11-21 03:45] LABS: Hematocrit 41.8 % (30.3-42.9); Hemoglobin 13.5 gm/dl (10.1-14.3); Mean Corpuscular HGB Conc 32 % (30-34); Mean Corpuscular Volume 81 fl (79-97); Platelet Count 265 K/mm3 (140-440); Red Blood Count 5.14 M/mm3 (3.65-5.03); Red Cell Distribution Width 15.8 % (13.2-15.2)
[2019-11-21 03:53] LABS: Basophils # (Auto) 0.1 K/mm3 (0.0-0.1); Eosinophils # (Auto) 0.1 K/mm3 (0.0-0.4); Eosinophils % (Auto) 1.2 % (0.0-4.3); Monocytes # (Auto) 0.5 K/mm3 (0.0-0.8)
--- NOTE | 2019-11-21 04:27 | Ultrasound Report ---
US OB transvaginal INDICATION / CLINICAL INFORMATION: vaginal bleed in preg. COMPARISON: None available. FINDINGS: No intrauterine is identified. The uterus is normal in size and appearance. Endometrial can al measures 11 mm. The ovaries are normal in size and appearance. IMPRESSION: No intrauterine identified Signer Name: Arun Jimenez MD FACR Signed: 11/21/2019 4:22 AM Workstation Name: [id number]
[2019-11-21 05:50] LABS: Basophils % (Manual) 0 % (0.0-1.8); Platelet Estimate Consistent w Auto; Target Cells Few; Total Cells Counted 100
== END 2019-11-21 05:08 | disposition home or self-care (01) ==
LOC: ED 01:43
DX: O26.891 Other specified pregnancy related conditions, first trimester (principal); O03.9 Complete or unspecified spontaneous abortion without complication; O99.211 Obesity complicating pregnancy, first trimester; O24.111 Pre-existing type 2 diabetes mellitus, in pregnancy, first trimester; O99.331 Smoking (tobacco) complicating pregnancy, first trimester; R10.9 Unspecified abdominal pain; F12.90 Cannabis use, unspecified, uncomplicated; E11.65 Type 2 diabetes mellitus with hyperglycemia; Z79.899 Other long term (current) drug therapy; Z68.44 Body mass index [BMI] 60.0-69.9, adult; Z3A.11 11 weeks gestation of pregnancy
CPT/HCPCS: 36415; 76801; 76817; 80048; 81001; 84702; 85007; 85025; 86900; 86901

== ENCOUNTER 2020-09-11 22:44 | Emergency (ER) | payer SELFPAY ==
[2020-09-12 00:12] VITALS: BP 120/74
[2020-09-12] MEDS ORDERED: SODIUM CHLORIDE 0.9% 1000 ML 1,000 ML IV ONE (02:08)
--- NOTE | 2020-09-12 02:08 | Emergency Department Report ---
ED General Adult HPI - General Chief complaint: Hyperglycemia Stated complaint: HIGH BLOOD SUGAR/DIABETIC/CANT SMELL/DIZZY PUI?: No Time Seen by Provider: 09/12/20 01:54 Source: patient Mode of arrival: Ambulatory Limitations: No Limitations - History of Present Illness Initial comments: Patient is a 35-year-old female that presents emergency room with complaints of blurry vision, headache, elevated blood sugar. Patient states her blood sugars been going on for about a week. Patient states that her blurry vision headaches been going on for 2 days. Patient states she has a loss of smell for 2 days. Patient denies cough. Patient denies fever and chills. Patient states her primary care which is [facility] put her on a new diabetes medication is not working. Patient states that they recently changed her Metformin. Patient states she is taking 500 mg twice a day of Metformin. Patient denies chest pain shortness of breath. Patient denies abdominal pain. Patient denies dysuria. Patient denies fever and chills. Patient denies recent travel. Patient denies recent international travel. Patient denies exposure to the novel coronavirus. Patient denies sick contacts. Patient denies fever and chills. Patient denies cough. Patient denies diarrhea. Patient denies coming in contact with anybody with symptoms of the novel coronavirus. -: Sudden Improves with: rest Worsens with: eating, movement Associated Symptoms: headaches. denies: confusion, chest pain, cough, diaphoresis, fever/chills, loss of appetite, malaise, nausea/vomiting, rash, seizure, shortness of breath, syncope, weakness - Related Data Previous Rx's Medication Instructions Recorded Last Taken Type Fluconazole [Diflucan] 150 mg PO DAILY #7 tablet 08/04/18 Unknown Rx cefUROXime [Ceftin] 500 mg PO Q12H #28 tablet 08/04/18 Unknown Rx Albuterol Mdi (or & Nicu Only) 2 puff IH Q4HR PRN #1 inhalation 12/21/18 Unknown Rx [ProAir HFA Inhaler] Polymyxin B Sulf/Trimethoprim 2 drop OP Q3HR #1 drops 12/21/18 Unknown Rx [Polytrim Eye Drops 25391jriwy/0.1%] levoFLOXacin [Levaquin] 750 mg PO QDAY #7 tablet 12/21/18 Unknown Rx Sulfamethoxazole/Trimethoprim 1 each PO BID #14 tablet 08/20/19 Unknown Rx [Bactrim DS TAB] Fluconazole (Nf) [Diflucan TAB] 150 mg PO ONCE #1 tablet 08/26/19 Unknown Rx Miconazole 2% [Monistat-Derm] 1 applicatio TP BID #1 tube 08/26/19 Unknown Rx cephALEXin [Keflex] 500 mg PO BID 7 Days #14 cap 08/26/19 Unknown Rx Fluconazole [Diflucan TAB] 200 mg PO QDAY #3 tablet 09/19/19 Unknown Rx Nystatin [Nystop Powder] 1 applicatio TP TID #2 bottle 09/19/19 Unknown Rx HYDROcodone/APAP 5-325 [[place] 1 each PO Q6HR PRN #8 tablet 11/21/19 Unknown Rx 5-325 mg TAB] Acarbose [Precose] 100 mg PO TID #60 tablet 09/12/20 Unknown Rx metFORMIN [Glucophage] 1,000 mg PO BID 30 Days #60 tablet 09/12/20 Unknown Rx Allergies Allergy/AdvReac Type Severity Reaction Status Date / Time No Known Allergies Allergy Verified 12/21/18 16:19 ED Review of Systems ROS: Stated complaint: HIGH BLOOD SUGAR/DIABETIC/CANT SMELL/DIZZY Other details as noted in HPI Constitutional: denies: chills, fever Eyes: denies: eye pain, eye discharge, vision change ENT: denies: ear pain, throat pain Respiratory: denies: cough, shortness of breath, wheezing Cardiovascular: denies: chest pain, palpitations Endocrine: no symptoms reported Gastrointestinal: denies: abdominal pain, nausea, diarrhea Genitourinary: denies: urgency, dysuria, discharge Musculoskeletal: denies: back pain, joint swelling, arthralgia Skin: denies: rash, lesions Neurological: as per HPI, headache. denies: weakness, paresthesias Psychiatric: denies: anxiety, depression Hematological/Lymphatic: denies: easy bleeding, easy bruising ED Past Medical Hx - Past Medical History Previous Medical History?: Yes Hx Diabetes: Yes Additional medical history: obese. miscarriage x2 - Surgical History Additional Surgical History: D&C 2018 - Social History Smoking Status: Never Smoker Substance Use Type: Alcohol - Medications Home Medications: Home Medications Medication Instructions Recorded Confirmed Last Taken Type Fluconazole [Diflucan] 150 mg PO DAILY #7 tablet 08/04/18 Unknown Rx cefUROXime [Ceftin] 500 mg PO Q12H #28 tablet 08/04/18 Unknown Rx Albuterol Mdi (or & Nicu Only) 2 puff IH Q4HR PRN #1 inhalation 12/21/18 Unknown Rx [ProAir HFA Inhaler] Polymyxin B Sulf/Trimethoprim 2 drop OP Q3HR #1 drops 12/21/18 Unknown Rx [Polytrim Eye Drops 07113dlnou/0.1%] levoFLOXacin [Levaquin] 750 mg PO QDAY #7 tablet 12/21/18 Unknown Rx Sulfamethoxazole/Trimethoprim 1 each PO BID #14 tablet 08/20/19 Unknown Rx [Bactrim DS TAB] Fluconazole (Nf) [Diflucan TAB] 150 mg PO ONCE #1 tablet 08/26/19 Unknown Rx Miconazole 2% [Monistat-Derm] 1 applicatio TP BID #1 tube 08/26/19 Unknown Rx cephALEXin [Keflex] 500 mg PO BID 7 Days #14 cap 08/26/19 Unknown Rx Fluconazole [Diflucan TAB] 200 mg PO QDAY #3 tablet 09/19/19 Unknown Rx Nystatin [Nystop Powder] 1 applicatio TP TID #2 bottle 09/19/19 Unknown Rx HYDROcodone/APAP 5-325 [[place] 1 each PO Q6HR PRN #8 tablet 11/21/19 Unknown Rx 5-325 mg TAB] Acarbose [Precose] 100 mg PO TID #60 tablet 09/12/20 Unknown Rx metFORMIN [Glucophage] 1,000 mg PO BID 30 Days #60 tablet 09/12/20 Unknown Rx ED Physical Exam - General Limitations: No Limitations General appearance: alert, in no apparent distress - Head Head exam: Present: atraumatic, normocephalic - Eye Eye exam: Present: normal appearance, PERRL Pupils: Present: normal accommodation - ENT ENT exam: Present: mucous membranes moist - Neck Neck exam: Present: normal inspection - Respiratory Respiratory exam: Present: normal lung sounds bilaterally. Absent: respiratory distress, wheezes, rales - Cardiovascular Cardiovascular Exam: Present: regular rate, normal rhythm. Absent: systolic murmur, diastolic murmur, rubs, gallop - GI/Abdominal GI/Abdominal exam: Present: soft, normal bowel sounds. Absent: distended, tenderness - Extremities Exam Extremities exam: Present: normal inspection - Back Exam Back exam: Present: normal inspection - Neurological Exam Neurological exam: Present: alert, oriented X3, CN II-XII intact, normal gait. Absent: motor sensory deficit - Psychiatric Psychiatric exam: Present: normal affect, normal mood - Skin Skin exam: Present: warm, dry, intact, normal color. Absent: rash ED Course Vital Signs 09/12/20 00:01 Temperature 97.9 F Pulse Rate 93 H Respiratory 16 Rate Blood Pressure 120/74 O2 Sat by Pulse 100 Oximetry - Reevaluation(s) Reevaluation #1: Patient states she is feeling much better. Patient will receive insulin for her elevated blood sugar. Patient ambulating without difficulties in the ER. 09/12/20 03:30 Reevaluation #2: Patient's blood sugar is much better. Patient that she is feeling much better. I discussed all results and clinical findings with patient. I discussed plan of care with patient. Patient agrees with plan of care. Patient is stable for discharge. Patient will be discharged home. Patient given discharge instructions. Patient voiced understanding of discharge instructions. 09/12/20 04:21 ED Medical Decision Making - Lab Data Result diagrams: 09/12/20 01:28 09/12/20 01:28 - Medical Decision Making Is a 35-year-old female that presents emergency room for hyperglycemia and dizziness and headache and blurry vision. Patient was given fluids in the ER and her dizziness, headache and blurry vision resolved. Patient was found to have hyperglycemia. Patient's labs were done and were essentially unremarkable except for hyperglycemia. Patient does not have any acidosis or signs of DKA. Patient given insulin and fluids in the ER. Patient responded well to treatment. Patient's glucose improved. Patient stable for discharge. Patient discharged home. - Differential Diagnosis Hyperglycemia, DKA, electrolyte imbalance, dizziness, Critical care attestation.: If time is entered above; I have spent that time in minutes in the direct care of this critically ill patient, excluding procedure time. ED Disposition Clinical Impression: Hyperglycemia, Dizziness Uncontrolled diabetes mellitus Qualifiers: Diabetes mellitus type: type 2 Glycemic state: with hyperglycemia Qualified Code(s): E11.65 - Type 2 diabetes mellitus with hyperglycemia Disposition: - TO HOME OR SELFCARE Is pt being admited?: No Does the pt Need Aspirin: No Condition: Stable Instructions: Complementary and Alternative Medical Therapies for Diabetes, Preventing Type 2 Diabetes Mellitus, Hyperglycemia, [id number], Type 2 Diabetes Mellitus, Self Care, Adult, [id number], Diabetes Mellitus Type 2 in Adults (ED) Additional Instructions: Patient to follow-up with primary care in 2 to 3 days. Patient to follow-up with retail specialist in 2 to 3 days. Patient to eat a diabetic and heart healthy diet. Patient to increase water. Patient to take meds as directed. Patient to return to the ER if condition worsens, changes or new symptoms arise. Patient to monitor blood sugars at home. Patient to keep blood sugar log. Patient take blood sugar log to follow-up appointments. Patient to monitor blood pressure at home. Patient to keep a blood pressure log. Patient to take blood pressure log to follow-up appointments. Prescriptions: metFORMIN [Glucophage] 1,000 mg PO BID 30 Days #60 tablet Acarbose [Precose] 100 mg PO TID #60 tablet Referrals: PRIMARY CARE [Primary Care Provider] - 2-3 Days Time of Disposition: 04:21
[2020-09-12 02:12] LABS: Basophils # (Auto) 0.1 K/mm3 (0.0-0.1); Basophils % (Auto) 0.5 % (0.0-1.8); Eosinophils # (Auto) 0.1 K/mm3 (0.0-0.4); Eosinophils % (Auto) 1.4 % (0.0-4.3); Hematocrit 40.5 % (30.3-42.9); Hemoglobin 13.1 gm/dl (10.1-14.3); Lymphocytes # (Auto) 3.7 K/mm3 (1.2-5.4); Lymphocytes % (Auto) 38.4 % (13.4-35.0); Mean Corpuscular HGB Conc 32 % (30-34); Mean Corpuscular Volume 85 fl (79-97); Monocytes # (Auto) 0.6 K/mm3 (0.0-0.8); Monocytes % (Auto) 6.5 % (0.0-7.3); Platelet Count 278 K/mm3 (140-440); Red Blood Count 4.78 M/mm3 (3.65-5.03); Red Cell Distribution Width 15.2 % (13.2-15.2)
[2020-09-12 02:24] LABS: Blood Urea Nitrogen 10 mg/dL (7-17); Calcium 8.9 mg/dL (8.4-10.2); Hemolysis Index 4
[2020-09-12 02:31] LABS: BUN/Creatinine Ratio 14
[2020-09-12] MEDS ORDERED: INSULIN REGULAR, HUMAN 100 UNITS/1 ML IV ONE (03:03)
[2020-09-12 03:36] LABS: Bilirubin,Urine NEG (Negative); Blood,Urine NEG (Negative); Color,Urine Straw (Yellow); Mucus,Urine FEW /HPF; Protein,Urine <15 mg/dL mg/dL (Negative); Urobilinogen,Urine < 2.0 mg/dL (<2.0)
== END 2020-09-12 04:38 | disposition home or self-care (01) ==
LOC: ED 22:44
DX: E11.65 Type 2 diabetes mellitus with hyperglycemia (principal); R42 Dizziness and giddiness; Z79.899 Other long term (current) drug therapy
CPT/HCPCS: 36415; 80048; 81001; 82962; 85025; 96361; 96374; 99283; J7030; J1815

== ENCOUNTER 2021-05-03 23:42 | Emergency (ER) | payer SELFPAY ==
[2021-05-04 00:40] VITALS: BP 139/76
--- NOTE | 2021-05-04 01:33 | Emergency Department Report ---
ED Rash HPI - HPI Chief Complaint: Urogenital-Female Stated Complaint: SEVERE VAGINAL BURNING IRRITATION Time Seen by Provider: 05/04/21 01:14 Duration: 3 Days (Burning has been present for the last) Rash Symptoms: Yes Itching ( 2 weeks but progressively worsening over the last 3 days) Severity: mild Other History: 36-year-old morbidly obese -[place] female with uncontrolled diabetes due to noncompliance presents emergency department complaining progressively worsening vaginal rash/pelvic rash not responding to reports a steroid cream that was prescribed by her primary care doctor. States that she has been having excessive amount of burning over the last few days and it is difficult to sit down due to the discomfort. Ports no fever, chills, sweats. No dysuria no hematuria no hematemesis no hematochezia ED Review of Systems ROS: Stated complaint: SEVERE VAGINAL BURNING IRRITATION Other details as noted in HPI Comment: All other systems reviewed and negative ED Past Medical Hx - Past Medical History Hx Diabetes: Yes Additional medical history: obese. miscarriage x2 - Surgical History Additional Surgical History: D&C 2018 - Social History Smoking Status: Current Every Day Smoker Substance Use Type: None - Medications Home Medications: Home Medications Medication Instructions Recorded Confirmed Last Taken Type Fluconazole [Diflucan] 150 mg PO DAILY #7 tablet 08/04/18 Unknown Rx cefUROXime [Ceftin] 500 mg PO Q12H #28 tablet 08/04/18 Unknown Rx Albuterol Mdi (or & Nicu Only) 2 puff IH Q4HR PRN #1 inhalation 12/21/18 Unknown Rx [ProAir HFA Inhaler] Polymyxin B Sulf/Trimethoprim 2 drop OP Q3HR #1 drops 12/21/18 Unknown Rx [Polytrim Eye Drops [id number]/0.1%] levoFLOXacin [Levaquin] 750 mg PO QDAY #7 tablet 12/21/18 Unknown Rx Sulfamethoxazole/Trimethoprim 1 each PO BID #14 tablet 08/20/19 Unknown Rx [Bactrim DS TAB] Fluconazole (Nf) [Diflucan TAB] 150 mg PO ONCE #1 tablet 08/26/19 Unknown Rx Miconazole 2% [Monistat-Derm] 1 applicatio TP BID #1 tube 08/26/19 Unknown Rx cephALEXin [Keflex] 500 mg PO BID 7 Days #14 cap 08/26/19 Unknown Rx Fluconazole [Diflucan TAB] 200 mg PO QDAY #3 tablet 09/19/19 Unknown Rx Nystatin [Nystop Powder] 1 applicatio TP TID #2 bottle 09/19/19 Unknown Rx HYDROcodone/APAP 5-325 [[place] 1 each PO Q6HR PRN #8 tablet 11/21/19 Unknown Rx 5-325 mg TAB] Acarbose [Precose] 100 mg PO TID #60 tablet 09/12/20 Unknown Rx metFORMIN [Glucophage] 1,000 mg PO BID 30 Days #60 tablet 09/12/20 Unknown Rx Ciclopirox 0.77% (Nf) [Loprox 1 applic TP BID #60 tube 05/04/21 Unknown Rx 0.77% (Nf)] Fluconazole [Diflucan] 150 mg PO ONCE #3 tablet 05/04/21 Unknown Rx Lidocaine 28.3 gm TP QID #1 cream..g. 05/04/21 Unknown Rx Rash Exam - Exam General: Vital signs noted. No distress. Alert and acting appropriately. HEENT: No Periorbital Edema, No Conjuctival Injection, No Chemosis, No Perioral Edema, No Tongue Edema, No Uvular Edema, No Compromised Airway, No Drooling Lungs: Yes Good Air Exchange (Normal Breath Sounds), No Wheezes, No Ronchi, No Stridor, No Cough, No Labored Respirations, No Retractions, No Use of Accessory Muscles, No Other Abnormal Lung Sounds Heart: Yes Regular, No Murmur Skin: Yes Excoriations, Yes Tenderness, Yes Erythema, Yes Other (Is a female excoriated rash to the inguinal crease area on the left side radiating to to the mons pubis region and down towards the vaginal area) Other: Positive: Abdomen Normal, Neurologic Normal, Musculoskeletal Normal ED Course Vital Signs 05/04/21 00:26 Pulse Rate 99 H Respiratory 20 Rate Blood Pressure 139/76 O2 Sat by Pulse 97 Oximetry ED Medical Decision Making - Medical Decision Making Discussed with patient the need to follow-up with her primary care provider for definitive treatment of her blood sugar diabetes and this rash develop also advised her to discontinue utilization of steroid cream. Current blood sugar is 261 this patient is never fasting. No suspicion of STDs. No abdominal pain. Symptoms most consistent with a tinea rash and will treat accordingly with antifungals topical and oral Critical care attestation.: If time is entered above; I have spent that time in minutes in the direct care of this critically ill patient, excluding procedure time. ED Disposition Clinical Impression: Tinea cruris Disposition: 01 HOME / SELF CARE / HOMELESS Is pt being admited?: No Does the pt Need Aspirin: No Condition: Stable Referrals: PRIMARY CARE, [Primary Care Provider] - 3-5 Days
== END 2021-05-04 02:05 | disposition home or self-care (01) ==
LOC: ED 23:42
DX: B35.6 Tinea cruris (principal); E11.9 Type 2 diabetes mellitus without complications; F17.200 Nicotine dependence, unspecified, uncomplicated; Z98.890 Other specified postprocedural states; Z79.899 Other long term (current) drug therapy
CPT/HCPCS: 82962

== ENCOUNTER 2021-07-19 01:14 | Emergency (ER) | payer SELFPAY ==
[2021-07-19 02:16] VITALS: BP 122/83
[2021-07-19] MEDS ORDERED: cephALEXin 500 MG CAP PO ONE (03:07)
[2021-07-19 03:44] LABS: Bacteria,Urine 1+ /HPF (Negative); Bilirubin,Urine NEG (Negative); Blood,Urine SM (Negative); Color,Urine Straw (Yellow); HCG Qualitative,Urine Negative (Negative); Mucus,Urine FEW /HPF; Protein,Urine <15 mg/dL mg/dL (Negative); Urobilinogen,Urine < 2.0 mg/dL (<2.0)
[2021-07-19] MEDS ORDERED: FLUCONAZOLE 200 MG TAB PO ONE (03:46)
--- NOTE | 2021-07-19 04:16 | Emergency Department Report ---
ED Female HPI - General Chief complaint: Urogenital-Female Stated complaint: VAGINAL ITCHING Time Seen by Provider: 07/19/21 02:25 Source: patient Mode of arrival: Ambulatory Limitations: No Limitations - History of Present Illness Initial comments: Patient 36-year-old type II diabetic female presents for vaginal itching urinary frequency and urgency. She denies fevers or chills there is no vaginal discharge. Patient advises not sexually active. Patient states she stopped metformin 1 week ago and has been having urinary frequency. There is no fevers there is no chills. There is no nausea no vomiting. Denies other symptoms. Vaginal itching is rated at 3/10 patient states it feels like yeast. Burning and itching. MD Complaint: dysuria - Related Data Previous Rx's Medication Instructions Recorded Last Taken Type Fluconazole [Diflucan] 150 mg PO DAILY #7 tablet 08/04/18 Unknown Rx cefUROXime [Ceftin] 500 mg PO Q12H #28 tablet 08/04/18 Unknown Rx Albuterol Mdi (or & Nicu Only) 2 puff IH Q4HR PRN #1 inhalation 12/21/18 Unknown Rx [ProAir HFA Inhaler] Polymyxin B Sulf/Trimethoprim 2 drop OP Q3HR #1 drops 12/21/18 Unknown Rx [Polytrim Eye Drops 93886wmdwf/0.1%] levoFLOXacin [Levaquin] 750 mg PO QDAY #7 tablet 12/21/18 Unknown Rx Sulfamethoxazole/Trimethoprim 1 each PO BID #14 tablet 08/20/19 Unknown Rx [Bactrim DS TAB] Fluconazole (Nf) [Diflucan TAB] 150 mg PO ONCE #1 tablet 08/26/19 Unknown Rx Miconazole 2% [Monistat-Derm] 1 applicatio TP BID #1 tube 08/26/19 Unknown Rx cephALEXin [Keflex] 500 mg PO BID 7 Days #14 cap 08/26/19 Unknown Rx Fluconazole [Diflucan TAB] 200 mg PO QDAY #3 tablet 09/19/19 Unknown Rx Nystatin [Nystop Powder] 1 applicatio TP TID #2 bottle 09/19/19 Unknown Rx HYDROcodone/APAP 5-325 [[place] 1 each PO Q6HR PRN #8 tablet 11/21/19 Unknown Rx 5-325 mg TAB] Acarbose [Precose] 100 mg PO TID #60 tablet 09/12/20 Unknown Rx Ciclopirox 0.77% (Nf) [Loprox 1 applic TP BID #60 tube 05/04/21 Unknown Rx 0.77% (Nf)] Fluconazole [Diflucan] 150 mg PO ONCE #3 tablet 05/04/21 Unknown Rx Lidocaine 28.3 gm TP QID #1 cream..g. 05/04/21 Unknown Rx cephALEXin [Keflex] 500 mg PO BID 7 Days #14 cap 07/19/21 Unknown Rx metFORMIN [Glucophage] 1,000 mg PO BID 30 Days #60 tablet 07/19/21 Unknown Rx Allergies Allergy/AdvReac Type Severity Reaction Status Date / Time No Known Allergies Allergy Verified 12/21/18 16:19 ED Review of Systems ROS: Stated complaint: VAGINAL ITCHING Other details as noted in HPI Constitutional: denies: chills, fever Eyes: denies: eye pain, eye discharge, vision change ENT: denies: ear pain, throat pain Respiratory: denies: cough, shortness of breath, wheezing Cardiovascular: denies: chest pain, palpitations Endocrine: no symptoms reported Gastrointestinal: as per HPI. denies: abdominal pain, nausea, vomiting Genitourinary: urgency, dysuria, frequency. denies: hematuria, discharge Musculoskeletal: denies: back pain, joint swelling, arthralgia Skin: denies: rash, lesions Neurological: denies: headache, weakness, paresthesias Psychiatric: denies: anxiety, depression Hematological/Lymphatic: denies: easy bleeding, easy bruising ED Past Medical Hx - Past Medical History Hx Diabetes: Yes Additional medical history: obese. miscarriage x2 - Surgical History Additional Surgical History: D&C 2018 - Social History Smoking Status: Current Every Day Smoker Substance Use Type: None - Medications Home Medications: Home Medications Medication Instructions Recorded Confirmed Last Taken Type Fluconazole [Diflucan] 150 mg PO DAILY #7 tablet 08/04/18 Unknown Rx cefUROXime [Ceftin] 500 mg PO Q12H #28 tablet 08/04/18 Unknown Rx Albuterol Mdi (or & Nicu Only) 2 puff IH Q4HR PRN #1 inhalation 12/21/18 Unknown Rx [ProAir HFA Inhaler] Polymyxin B Sulf/Trimethoprim 2 drop OP Q3HR #1 drops 12/21/18 Unknown Rx [Polytrim Eye Drops 28023qhhty/0.1%] levoFLOXacin [Levaquin] 750 mg PO QDAY #7 tablet 12/21/18 Unknown Rx Sulfamethoxazole/Trimethoprim 1 each PO BID #14 tablet 08/20/19 Unknown Rx [Bactrim DS TAB] Fluconazole (Nf) [Diflucan TAB] 150 mg PO ONCE #1 tablet 08/26/19 Unknown Rx Miconazole 2% [Monistat-Derm] 1 applicatio TP BID #1 tube 08/26/19 Unknown Rx cephALEXin [Keflex] 500 mg PO BID 7 Days #14 cap 08/26/19 Unknown Rx Fluconazole [Diflucan TAB] 200 mg PO QDAY #3 tablet 09/19/19 Unknown Rx Nystatin [Nystop Powder] 1 applicatio TP TID #2 bottle 09/19/19 Unknown Rx HYDROcodone/APAP 5-325 [[place] 1 each PO Q6HR PRN #8 tablet 11/21/19 Unknown Rx 5-325 mg TAB] Acarbose [Precose] 100 mg PO TID #60 tablet 09/12/20 Unknown Rx Ciclopirox 0.77% (Nf) [Loprox 1 applic TP BID #60 tube 05/04/21 Unknown Rx 0.77% (Nf)] Fluconazole [Diflucan] 150 mg PO ONCE #3 tablet 05/04/21 Unknown Rx Lidocaine 28.3 gm TP QID #1 cream..g. 05/04/21 Unknown Rx cephALEXin [Keflex] 500 mg PO BID 7 Days #14 cap 07/19/21 Unknown Rx metFORMIN [Glucophage] 1,000 mg PO BID 30 Days #60 tablet 07/19/21 Unknown Rx ED Physical Exam - General Limitations: No Limitations General appearance: alert, in no apparent distress - Head Head exam: Present: atraumatic, normocephalic - Eye Eye exam: Present: normal appearance, PERRL, EOMI Pupils: Present: normal accommodation - ENT ENT exam: Present: mucous membranes moist - Neck Neck exam: Present: normal inspection, full ROM. Absent: tenderness - Respiratory Respiratory exam: Present: normal lung sounds bilaterally. Absent: respiratory distress, wheezes, stridor - Cardiovascular Cardiovascular Exam: Present: regular rate, normal rhythm, normal heart sounds. Absent: systolic murmur, diastolic murmur, rubs, gallop - GI/Abdominal GI/Abdominal exam: Present: soft, normal bowel sounds. Absent: distended, tenderness, guarding, rebound, rigid, bruit, hernia - Rectal Rectal exam: Present: deferred - External exam: Present: other (pt declined ) - Extremities Exam Extremities exam: Present: normal inspection, full ROM, tenderness. Absent: normal capillary refill - Back Exam Back exam: Present: normal inspection, full ROM. Absent: tenderness, CVA tenderness (R), CVA tenderness (L) - Neurological Exam Neurological exam: Present: alert, oriented X3, CN II-XII intact, normal gait - Psychiatric Psychiatric exam: Present: normal affect, normal mood - Skin Skin exam: Present: warm, dry, intact, normal color. Absent: rash ED Course Vital Signs 07/19/21 02:10 Temperature 98.3 F Pulse Rate 102 H Respiratory 22 Rate Blood Pressure 122/83 [Right] O2 Sat by Pulse 99 Oximetry ED Medical Decision Making - Lab Data Labs 07/19/21 03:29 Urine Color Straw Urine Turbidity Clear Urine pH 6.0 Ur Specific [place] 1.037 H Urine Protein <15 mg/dl Urine Glucose (UA) >=500 Urine Ketones Neg Urine Blood Sm Urine Nitrite Neg Urine Bilirubin Neg Urine Urobilinogen < 2.0 Ur Leukocyte Esterase Tr Urine WBC (Auto) 4.0 Urine RBC (Auto) 4.0 U Epithel Cells (Auto) 2.0 Urine Bacteria (Auto) 1+ Urine Mucus Few Urine Yeast (Budding) Few Urine HCG, Qual Negative - Medical Decision Making Plan treat treat for vaginitis, dysuria, patient will be DC'd to home with prescription, patient will follow up with primary care doctor in 2 to 3 days. Patient will restart Metformin as previously prescribed 500mg po bid Patient verbalized agreement and understanding with discharge plan. Patient DC'd home in stable condition at this time Critical care attestation.: If time is entered above; I have spent that time in minutes in the direct care of this critically ill patient, excluding procedure time. ED Disposition Clinical Impression: Hyperglycemia UTI (urinary tract infection) Qualifiers: Urinary tract infection type: acute cystitis Hematuria presence: without hematuria Qualified Code(s): N30.00 - Acute cystitis without hematuria Vaginitis Qualifiers: Chronicity: acute Qualified Code(s): N76.0 - Acute vaginitis Disposition: HOME / SELF CARE / HOMELESS Is pt being admited?: No Does the pt Need Aspirin: No Condition: Stable Instructions: Vaginitis, [id number] Additional Instructions: Take medications as prescribed, with your doctor in 2 to 3 days. Return to e mergency if symptoms worsen Prescriptions: metFORMIN [Glucophage] 1,000 mg PO BID 30 Days #60 tablet cephALEXin [Keflex] 500 mg PO BID 7 Days #14 cap Referrals: MONIKA LARA MD [Staff Physician] - 3-5 Days Forms: Work/School Release Form(ED) Time of Disposition: 04:24
== END 2021-07-19 04:38 | disposition home or self-care (01) ==
LOC: ED 01:14
DX: E11.65 Type 2 diabetes mellitus with hyperglycemia (principal); N30.00 Acute cystitis without hematuria; N76.0 Acute vaginitis; F17.200 Nicotine dependence, unspecified, uncomplicated
CPT/HCPCS: 81001; 81025; 99283

== ENCOUNTER 2021-09-07 03:48 | Emergency (ER) | payer SELFPAY ==
[2021-09-07 04:13] VITALS: BP 139/91
[2021-09-07 04:43] LABS: Bacteria,Urine 1+ /HPF (Negative); Bilirubin,Urine NEG (Negative); Blood,Urine NEG (Negative); Color,Urine Yellow (Yellow); Mucus,Urine FEW /HPF; Protein,Urine <15 mg/dL mg/dL (Negative); Urobilinogen,Urine < 2.0 mg/dL (<2.0)
[2021-09-07 04:47] LABS: WBC,Urine > 182.0 /HPF (0.0-6.0)
[2021-09-07 04:49] LABS: HCG Qualitative,Urine Negative (Negative)
[2021-09-07] MEDS ORDERED: LIDOCAINE-MPF (1%) 10 MG/1 ML VIAL 5 ML INFILTRATI ONE (04:50)
--- NOTE | 2021-09-07 05:20 | Emergency Department Report ---
ED Female HPI - General Chief complaint: Urogenital-Female Stated complaint: VAGINAL ITCHING Source: patient Mode of arrival: Ambulatory Limitations: No Limitations - History of Present Illness Initial comments: Patient is a 36-year-old -Greek female with a history of morbid obesity and vmv-[id number] diabetes who presents to the ED with complaint of acute onset persistent dysuria, urinary frequency and urgency, vaginal discharge and vaginal irritation for the last 1 week, but worse in the last 2 days. Patient states that she has been using [id number] medications with no relief. Patient denies vaginal bleeding, dyspareunia, chest pain, shortness of breath, low back pain, abdominal pain, nausea and vomiting, fever and chills. MD Complaint: dysuria, pelvic pain, other (vaginal irritation) -: Sudden, week(s) (1) Location: labia, other (vagina) Radiation: non-radiating Severity: severe Severity scale (0 -10): 7 Quality: burning, other (itchy) Consistency: constant Improves with: none Worsens with: urination Are you Now?: No Associated Symptoms: denies other symptoms, dysuria, rash (Itchy dry scaly rashes along the labia majora). denies: vaginal discharge, vaginal bleeding, abdominal pain, nausea/vomiting, fever/chills, loss of appetite, hematuria, shortness of breath, syncope, weakness, other - Related Data Sexually active: Yes : 2 Para: 0 A: 2 Previous Rx's Medication Instructions Recorded Last Taken Type Fluconazole [Diflucan] 150 mg PO DAILY #7 tablet 08/04/18 Unknown Rx cefUROXime [Ceftin] 500 mg PO Q12H #28 tablet 08/04/18 Unknown Rx Albuterol Mdi (or & Nicu Only) 2 puff IH Q4HR PRN #1 inhalation 12/21/18 Unknown Rx [ProAir HFA Inhaler] Polymyxin B Sulf/Trimethoprim 2 drop OP Q3HR #1 drops 12/21/18 Unknown Rx [Polytrim Eye Drops 40484kwafb/0.1%] levoFLOXacin [Levaquin] 750 mg PO QDAY #7 tablet 12/21/18 Unknown Rx Sulfamethoxazole/Trimethoprim 1 each PO BID #14 tablet 08/20/19 Unknown Rx [Bactrim DS TAB] Fluconazole (Nf) [Diflucan TAB] 150 mg PO ONCE #1 tablet 08/26/19 Unknown Rx Miconazole 2% [Monistat-Derm] 1 applicatio TP BID #1 tube 08/26/19 Unknown Rx cephALEXin [Keflex] 500 mg PO BID 7 Days #14 cap 08/26/19 Unknown Rx Fluconazole [Diflucan TAB] 200 mg PO QDAY #3 tablet 09/19/19 Unknown Rx Nystatin [Nystop Powder] 1 applicatio TP TID #2 bottle 09/19/19 Unknown Rx HYDROcodone/APAP 5-325 [[place] 1 each PO Q6HR PRN #8 tablet 11/21/19 Unknown Rx 5-325 mg TAB] Acarbose [Precose] 100 mg PO TID #60 tablet 09/12/20 Unknown Rx Ciclopirox 0.77% (Nf) [Loprox 1 applic TP BID #60 tube 05/04/21 Unknown Rx 0.77% (Nf)] Fluconazole [Diflucan] 150 mg PO ONCE #3 tablet 05/04/21 Unknown Rx Lidocaine 28.3 gm TP QID #1 cream..g. 05/04/21 Unknown Rx cephALEXin [Keflex] 500 mg PO BID 7 Days #14 cap 07/19/21 Unknown Rx metFORMIN [Glucophage] 1,000 mg PO BID 30 Days #60 tablet 07/19/21 Unknown Rx CLOTRIMAZOLE 1% Vag Cream [Mycelex 1 applicatio VG QHS #1 tube 09/07/21 Unknown Rx Vag cream] [place] Starch [Resource Thickenup] 1 applic PO DAILY #227 gm 09/07/21 Unknown Rx Fluconazole [Diflucan TAB] 200 mg PO QDAY #3 tablet 09/07/21 Unknown Rx Ibuprofen [Motrin] 800 mg PO Q8HR PRN #24 tablet 09/07/21 Unknown Rx Sulfamethoxazole/Trimethoprim 1 each PO Q12H #20 09/07/21 Unknown Rx [Bactrim DS TAB] Allergies Allergy/AdvReac Type Severity Reaction Status Date / Time No Known Allergies Allergy Verified 12/21/18 16:19 ED Review of Systems ROS: Stated complaint: VAGINAL ITCHING Other details as noted in HPI Constitutional: denies: chills, fever Eyes: denies: eye pain, eye discharge, vision change ENT: denies: ear pain, throat pain Respiratory: denies: cough, shortness of breath, wheezing Cardiovascular: denies: chest pain, palpitations Endocrine: no symptoms reported Gastrointestinal: denies: abdominal pain, nausea, diarrhea Genitourinary: urgency, dysuria, frequency, discharge Musculoskeletal: other (Vaginal irritation and itching). denies: back pain, joint swelling, arthralgia Skin: denies: rash, lesions Neurological: denies: headache, weakness, paresthesias Psychiatric: denies: anxiety, depression Hematological/Lymphatic: denies: easy bleeding, easy bruising ED Past Medical Hx - Past Medical History Previous Medical History?: Yes Hx Diabetes: Yes Additional medical history: obese. miscarriage x2 - Surgical History Past Surgical History?: Yes Additional Surgical History: D&C 2018 - Social History Smoking Status: Current Every Day Smoker Substance Use Type: Marijuana - Medications Home Medications: Home Medications Medication Instructions Recorded Confirmed Last Taken Type Fluconazole [Diflucan] 150 mg PO DAILY #7 tablet 08/04/18 Unknown Rx cefUROXime [Ceftin] 500 mg PO Q12H #28 tablet 08/04/18 Unknown Rx Albuterol Mdi (or & Nicu Only) 2 puff IH Q4HR PRN #1 inhalation 12/21/18 Unknown Rx [ProAir HFA Inhaler] Polymyxin B Sulf/Trimethoprim 2 drop OP Q3HR #1 drops 12/21/18 Unknown Rx [Polytrim Eye Drops 01362rfruh/0.1%] levoFLOXacin [Levaquin] 750 mg PO QDAY #7 tablet 12/21/18 Unknown Rx Sulfamethoxazole/Trimethoprim 1 each PO BID #14 tablet 08/20/19 Unknown Rx [Bactrim DS TAB] Fluconazole (Nf) [Diflucan TAB] 150 mg PO ONCE #1 tablet 08/26/19 Unknown Rx Miconazole 2% [Monistat-Derm] 1 applicatio TP BID #1 tube 08/26/19 Unknown Rx cephALEXin [Keflex] 500 mg PO BID 7 Days #14 cap 08/26/19 Unknown Rx Fluconazole [Diflucan TAB] 200 mg PO QDAY #3 tablet 09/19/19 Unknown Rx Nystatin [Nystop Powder] 1 applicatio TP TID #2 bottle 09/19/19 Unknown Rx HYDROcodone/APAP 5-325 [[place] 1 each PO Q6HR PRN #8 tablet 11/21/19 Unknown Rx 5-325 mg TAB] Acarbose [Precose] 100 mg PO TID #60 tablet 09/12/20 Unknown Rx Ciclopirox 0.77% (Nf) [Loprox 1 applic TP BID #60 tube 05/04/21 Unknown Rx 0.77% (Nf)] Fluconazole [Diflucan] 150 mg PO ONCE #3 tablet 05/04/21 Unknown Rx Lidocaine 28.3 gm TP QID #1 cream..g. 05/04/21 Unknown Rx cephALEXin [Keflex] 500 mg PO BID 7 Days #14 cap 07/19/21 Unknown Rx metFORMIN [Glucophage] 1,000 mg PO BID 30 Days #60 tablet 07/19/21 Unknown Rx CLOTRIMAZOLE 1% Vag Cream [Mycelex 1 applicatio VG QHS #1 tube 09/07/21 Unknown Rx Vag cream] [place] [Resource Thickenup] 1 applic PO DAILY #227 gm 09/07/21 Unknown Rx Fluconazole [Diflucan TAB] 200 mg PO QDAY #3 tablet 09/07/21 Unknown Rx Ibuprofen [Motrin] 800 mg PO Q8HR PRN #24 tablet 09/07/21 Unknown Rx Sulfamethoxazole/Trimethoprim 1 each PO Q12H #20 09/07/21 Unknown Rx [Bactrim DS TAB] ED Physical Exam - General Limitations: No Limitations General appearance: alert, in no apparent distress - Head Head exam: Present: atraumatic, normocephalic, normal inspection - Eye Eye exam: Present: normal appearance, PERRL, EOMI Pupils: Present: normal accommodation - ENT ENT exam: Present: normal exam, normal orophraynx, mucous membranes moist, TM's normal bilaterally, normal external ear exam - Neck Neck exam: Present: normal inspection, full ROM. Absent: tenderness, meningismus, lymphadenopathy - Respiratory Respiratory exam: Present: normal lung sounds bilaterally. Absent: respiratory distress, wheezes, rales, rhonchi, stridor, chest wall tenderness, accessory muscle use, decreased breath sounds, prolonged expiratory - Cardiovascular Cardiovascular Exam: Present: normal rhythm, tachycardia, normal heart sounds. Absent: systolic murmur, diastolic murmur, rubs, gallop - GI/Abdominal GI/Abdominal exam: Present: soft, normal bowel sounds. Absent: tenderness, guarding, rebound, hyperactive bowel sounds, hypoactive bowel sounds, organomegaly, bruit - External exam: Present: other (Dry scaly irritated rashes on the labial lips with tenderness and swelling) Speculum exam: Present: vaginal discharge (Thick white cottage cheese discharge) Bi-manual exam: Present: other (Genital exam in the presence of female electrical instrumentation technician Ms. Patel) - Extremities Exam Extremities exam: Present: normal inspection, full ROM, normal capillary refill - Back Exam Back exam: Present: normal inspection, full ROM. Absent: tenderness, CVA tenderness (R), CVA tenderness (L), muscle spasm, paraspinal tenderness - Neurological Exam Neurological exam: Present: alert, oriented X3, CN II-XII intact, normal gait, reflexes normal - Psychiatric Psychiatric exam: Present: normal affect, normal mood, anxious - Skin Skin exam: Present: warm, dry, intact, normal color. Absent: rash ED Course Vital Signs 09/07/21 03:55 Temperature 98.5 F Pulse Rate 104 H Respiratory 18 Rate Blood Pressure 139/91 O2 Sat by Pulse 98 Oximetry ED Medical Decision Making - Medical Decision Making This is a 36-year-old -Greek female with a history of morbid obesity and eot-lepnopq-zoglzzgfj diabetes who presents to the ED with complaint of acute onset persistent dysuria, urinary frequency and urgency, vaginal discharge and vaginal irritation for the last 1 week, but worse in the last 2 days. Patient states that she has been using [id number] medications with no re lief. In the ED, patient is alert and oriented x3 and is not in distress. Urinalysis shows significant urinary tract infection and physical exam reveals dry scaly irritated labial majora lips with thick white discharge. Patient was treated in the ED with Rocephin 1 g intramuscular injection. Patient was discharged home on prescriptions of oral antibiotics and antifungal creams and antifungal tablets, and was advised to follow-up with her primary care physician in 7 to 10 days for reevaluation or return to the ED immediately if symptoms get worse. - Differential Diagnosis UTI; candidal vaginitis; cellulitis; folliculitis; tinea cruris Critical care attestation.: If time is entered above; I have spent that time in minutes in the direct care of this critically ill patient, excluding procedure time. ED Disposition Clinical Impression: Acute urinary tract infection, Vaginitis due to [place], Tinea cruris Disposition: HOME / SELF CARE / HOMELESS Is pt being admited?: No Does the pt Need Aspirin: No Condition: Stable Instructions: Vaginitis, Lrzs-[id number], Vaginal Yeast Infection, Adult, Urinary Tract Infection, Adult, [id number] Additional Instructions: Take medication with food, drink plenty of fluids and follow-up with the primary care physician in 7 to 10 days for reevaluation. Return to the ED immediately if symptoms get worse. Prescriptions: CLOTRIMAZOLE 1% Vag Cream [Mycelex Vag cream] 1 applicatio VG QHS #1 tube Sulfamethoxazole/Trimethoprim [Bactrim DS TAB] 1 each PO Q12H #20 Fluconazole [Diflucan TAB] 200 mg PO QDAY #3 tablet Ibuprofen [Motrin] 800 mg PO Q8HR PRN #24 tablet PRN Reason: Pain , Severe (7-10) [place] Starch [Resource Thickenup] 1 applic PO DAILY #227 gm Referrals: [facility] [Provider Group] - 7-10 days Time of Disposition: 05:14 Print Language: [place]
== END 2021-09-07 05:30 | disposition home or self-care (01) ==
LOC: ED 03:48
DX: N39.0 Urinary tract infection, site not specified (principal); B37.3 Candidiasis of vulva and vagina; B35.6 Tinea cruris; F17.200 Nicotine dependence, unspecified, uncomplicated; F12.90 Cannabis use, unspecified, uncomplicated; E11.8 Type 2 diabetes mellitus with unspecified complications
CPT/HCPCS: 81001; 81025; 96372; 99283; J0696; J3490

== ENCOUNTER 2022-01-05 10:36 | Emergency (ER) | payer SELFPAY ==
[2022-01-05] MEDS ORDERED: HYDROcodone/ACETAMINOPHEN 5-325 MG TAB PO ONE ×2 (13:05→18:58)
--- NOTE | 2022-01-05 13:08 | Emergency Department Report ---
ED Back Pain/Injury HPI - General Chief Complaint: Back Pain/Injury Stated Complaint: BACK PAIN/BODY BOILS Time Seen by Provider: 01/05/22 12:43 Source: patient Limitations: No Limitations - History of Present Illness Initial Comments: 36 Y F with PMH DM present to ER with back pain that started this AM when getting out of bed and no reports of injury. Denies any urinary symptoms. Denies any numbness tingling or weakness in lower legs. Denies any changes in her gait. Reports no other acute symptoms at this moment patient does report almost ran out of her metformin which she takes 1000 mg twice daily. - Related Data Previous Rx's Medication Instructions Recorded Last Taken Type Fluconazole [Diflucan] 150 mg PO DAILY #7 tablet 08/04/18 Unknown Rx cefUROXime [Ceftin] 500 mg PO Q12H #28 tablet 08/04/18 Unknown Rx Albuterol Mdi (or & Nicu Only) 2 puff IH Q4HR PRN #1 inhalation 12/21/18 Unknown Rx [ProAir HFA Inhaler] Polymyxin B Sulf/Trimethoprim 2 drop OP Q3HR #1 drops 12/21/18 Unknown Rx [Polytrim Eye Drops 38350qafxa/0.1%] levoFLOXacin [Levaquin] 750 mg PO QDAY #7 tablet 12/21/18 Unknown Rx Sulfamethoxazole/Trimethoprim 1 each PO BID #14 tablet 08/20/19 Unknown Rx [Bactrim DS TAB] Fluconazole (Nf) [Diflucan TAB] 150 mg PO ONCE #1 tablet 08/26/19 Unknown Rx Miconazole 2% [Monistat-Derm] 1 applicatio TP BID #1 tube 08/26/19 Unknown Rx cephALEXin [Keflex] 500 mg PO BID 7 Days #14 cap 08/26/19 Unknown Rx Fluconazole [Diflucan TAB] 200 mg PO QDAY #3 tablet 09/19/19 Unknown Rx Nystatin [Nystop Powder] 1 applicatio TP TID #2 bottle 09/19/19 Unknown Rx HYDROcodone/APAP 5-325 [Grandy 1 each PO Q6HR PRN #8 tablet 11/21/19 Unknown Rx 5-325 mg TAB] Acarbose [Precose] 100 mg PO TID #60 tablet 09/12/20 Unknown Rx Ciclopirox 0.77% (Nf) [Loprox 1 applic TP BID #60 tube 05/04/21 Unknown Rx 0.77% (Nf)] Fluconazole [Diflucan] 150 mg PO ONCE #3 tablet 05/04/21 Unknown Rx Lidocaine 28.3 gm TP QID #1 cream..g. 05/04/21 Unknown Rx cephALEXin [Keflex] 500 mg PO BID 7 Days #14 cap 07/19/21 Unknown Rx metFORMIN [Glucophage] 1,000 mg PO BID 30 Days #60 tablet 07/19/21 Unknown Rx CLOTRIMAZOLE 1% Vag Cream [Mycelex 1 applicatio VG QHS #1 tube 09/07/21 Unknown Rx Vag cream] [place] Starch [Resource Thickenup] 1 applic PO DAILY #227 gm 09/07/21 Unknown Rx Fluconazole [Diflucan TAB] 200 mg PO QDAY #3 tablet 09/07/21 Unknown Rx Ibuprofen [Motrin] 800 mg PO Q8HR PRN #24 tablet 09/07/21 Unknown Rx Sulfamethoxazole/Trimethoprim 1 each PO Q12H #20 09/07/21 Unknown Rx [Bactrim DS TAB] Metformin HCl [metFORMIN] 1,000 mg PO BID 30 Days #60 tab 01/05/22 Unknown Rx Nitrofurantoin [place]/M-Cryst 100 mg PO Q12HR 7 Days #14 capsule 01/05/22 Unknown Rx [Macrobid CAP] methOCARBAMOL [Robaxin TAB] 500 mg PO Q8HR PRN 7 Days #21 tab 01/05/22 Unknown Rx Allergies Allergy/AdvReac Type Severity Reaction Status Date / Time No Known Allergies Allergy Verified 01/05/22 12:31 ED Review of Systems ROS: Stated complaint: BACK PAIN/BODY BOILS Other details as noted in HPI Constitutional: denies: chills, fever Eyes: denies: eye pain, eye discharge, vision change ENT: denies: ear pain, throat pain Respiratory: denies: cough, shortness of breath, wheezing Cardiovascular: denies: chest pain, palpitations Endocrine: no symptoms reported Gastrointestinal: denies: abdominal pain, nausea, diarrhea Genitourinary: denies: urgency, dysuria, discharge Musculoskeletal: back pain. denies: joint swelling, arthralgia Skin: denies: rash, lesions Neurological: denies: headache, weakness, paresthesias Psychiatric: denies: anxiety, depression Hematological/Lymphatic: denies: easy bleeding, easy bruising ED Past Medical Hx - Past Medical History Previous Medical History?: Yes Hx Diabetes: Yes Additional medical history: obese. miscarriage x2 - Surgical History Additional Surgical History: D&C 2018 - Social History Smoking Status: Current Every Day Smoker Substance Use Type: Marijuana - Medications Home Medications: Home Medications Medication Instructions Recorded Confirmed Last Taken Type Fluconazole [Diflucan] 150 mg PO DAILY #7 tablet 08/04/18 Unknown Rx cefUROXime [Ceftin] 500 mg PO Q12H #28 tablet 08/04/18 Unknown Rx Albuterol Mdi (or & Nicu Only) 2 puff IH Q4HR PRN #1 inhalation 12/21/18 Unknown Rx [ProAir HFA Inhaler] Polymyxin B Sulf/Trimethoprim 2 drop OP Q3HR #1 drops 12/21/18 Unknown Rx [Polytrim Eye Drops 49353cmoiz/0.1%] levoFLOXacin [Levaquin] 750 mg PO QDAY #7 tablet 12/21/18 Unknown Rx Sulfamethoxazole/Trimethoprim 1 each PO BID #14 tablet 08/20/19 Unknown Rx [Bactrim DS TAB] Fluconazole (Nf) [Diflucan TAB] 150 mg PO ONCE #1 tablet 08/26/19 Unknown Rx Miconazole 2% [Monistat-Derm] 1 applicatio TP BID #1 tube 08/26/19 Unknown Rx cephALEXin [Keflex] 500 mg PO BID 7 Days #14 cap 08/26/19 Unknown Rx Fluconazole [Diflucan TAB] 200 mg PO QDAY #3 tablet 09/19/19 Unknown Rx Nystatin [Nystop Powder] 1 applicatio TP TID #2 bottle 09/19/19 Unknown Rx HYDROcodone/APAP 5-325 [Grandy 1 each PO Q6HR PRN #8 tablet 11/21/19 Unknown Rx 5-325 mg TAB] Acarbose [Precose] 100 mg PO TID #60 tablet 09/12/20 Unknown Rx Ciclopirox 0.77% (Nf) [Loprox 1 applic TP BID #60 tube 05/04/21 Unknown Rx 0.77% (Nf)] Fluconazole [Diflucan] 150 mg PO ONCE #3 tablet 05/04/21 Unknown Rx Lidocaine 28.3 gm TP QID #1 cream..g. 05/04/21 Unknown Rx cephALEXin [Keflex] 500 mg PO BID 7 Days #14 cap 07/19/21 Unknown Rx metFORMIN [Glucophage] 1,000 mg PO BID 30 Days #60 tablet 07/19/21 Unknown Rx CLOTRIMAZOLE 1% Vag Cream [Mycelex 1 applicatio VG QHS #1 tube 09/07/21 Unknown Rx Vag cream] [place] Starch [Resource Thickenup] 1 applic PO DAILY #227 gm 09/07/21 Unknown Rx Fluconazole [Diflucan TAB] 200 mg PO QDAY #3 tablet 09/07/21 Unknown Rx Ibuprofen [Motrin] 800 mg PO Q8HR PRN #24 tablet 09/07/21 Unknown Rx Sulfamethoxazole/Trimethoprim 1 each PO Q12H #20 09/07/21 Unknown Rx [Bactrim DS TAB] Metformin HCl [metFORMIN] 1,000 mg PO BID 30 Days #60 tab 01/05/22 Unknown Rx Nitrofurantoin [place]/M-Cryst 100 mg PO Q12HR 7 Days #14 capsule 01/05/22 Unknown Rx [Macrobid CAP] methOCARBAMOL [Robaxin TAB] 500 mg PO Q8HR PRN 7 Days #21 tab 01/05/22 Unknown Rx ED Physical Exam - General Limitations: No Limitations General appearance: alert, in no apparent distress - Head Head exam: Present: atraumatic, normocephalic - Eye Eye exam: Present: normal appearance - ENT ENT exam: Present: mucous membranes moist - Neck Neck exam: Present: normal inspection - Respiratory Respiratory exam: Present: normal lung sounds bilaterally. Absent: respiratory distress - Cardiovascular Cardiovascular Exam: Present: regular rate, normal rhythm. Absent: systolic murmur, diastolic murmur, rubs, gallop - GI/Abdominal GI/Abdominal exam: Present: soft, normal bowel sounds - Extremities Exam Extremities exam: Present: normal inspection - Back Exam Back exam: Present: normal inspection, tenderness. Absent: CVA tenderness (L), paraspinal tenderness, vertebral tenderness - Neurological Exam Neurological exam: Present: alert, oriented X3 - Psychiatric Psychiatric exam: Present: normal affect, normal mood - Skin Skin exam: Present: warm, dry, intact, normal color. Absent: rash ED Medical Decision Making - Medical Decision Making 36 Y F with PMH DM present to ER with back pain that started this AM when getting out of bed and no reports of injury. Denies any urinary symptoms. Denies any numbness tingling or weakness in lower legs. Denies any changes in her gait. Reports no other acute symptoms at this moment patient does report almost ran out of her metformin which she takes 1000 mg twice daily. Left-sided back tenderness is present, no spinal process noted. No CVA tenderness noted. Patient's gait is within normal limits. Urinalysis shows WBC present with leuks. Patient has a decrease in pain after receiving oral pain medicine here in ER. Patient given a refill for her metformin. Patient given resources to local clinics for diabetic medication refills as well as diabetic management. Patient agrees with plan of care and verbalizes understanding. Patient stable for discharge. Critical care attestation.: If time is entered above; I have spent that time in minutes in the direct care of this critically ill patient, excluding procedure time. ED Disposition Clinical Impression: Acute UTI, Medication refill Left-sided back pain Qualifiers: Back pain location: low back pain Chronicity: acute Sciatica presence: without sciatica Qualified Code(s): M54.50 - Low back pain, unspecified Disposition: 01 HOME / SELF CARE / HOMELESS Is pt being admited?: No Condition: Stable Instructions: Acute Back Pain, Adult, Urinary Tract Infection, Adult, [id number] Prescriptions: Nitrofurantoin [place]/M-Cryst [Macrobid CAP] 100 mg PO Q12HR 7 Days #14 capsule Metformin HCl [metFORMIN] 1,000 mg PO BID 30 Days #60 tab methOCARBAMOL [Robaxin TAB] 500 mg PO Q8HR PRN 7 Days #21 tab PRN Reason: Muscle Spasm Referrals: PRIMARY CARE, [Primary Care Provider] - 3-5 Days [facility] [Outside] - 3-5 Days [facility] [Outside] - 3-5 Days Time of Disposition: 19:04 Print Language: URUGUAYAN
[2022-01-05] MEDS ORDERED: INSULIN LISPRO 100 UNIT/ML SUB-Q ONE (14:38)
[2022-01-05 17:13] LABS: HCG Qualitative,Urine Negative (Negative)
[2022-01-05 17:16] LABS: Bacteria,Urine 3+ /HPF (Negative); Bilirubin,Urine NEG (Negative); Blood,Urine NEG (Negative); Color,Urine Straw (Yellow); Mucus,Urine FEW /HPF; Protein,Urine <15 mg/dL mg/dL (Negative); Urobilinogen,Urine < 2.0 mg/dL (<2.0)
[2022-01-05] MEDS ORDERED: LIDOCAINE-MPF (1%) 10 MG/1 ML VIAL 5 ML INFILTRATI ONE (18:19)
[2022-01-05] MEDS ORDERED: NITROFURANTOIN MONOHYD/M-CRYST 100 MG CAP PO ONE (18:58)
[2022-01-05 19:33] VITALS: BP 141/87
== END 2022-01-05 19:33 | disposition home or self-care (01) ==
LOC: ED 10:36
DX: N39.0 Urinary tract infection, site not specified (principal); M54.50 Low back pain, unspecified; Z76.0 Encounter for issue of repeat prescription; E11.9 Type 2 diabetes mellitus without complications; F12.90 Cannabis use, unspecified, uncomplicated; F17.200 Nicotine dependence, unspecified, uncomplicated; Z79.899 Other long term (current) drug therapy
CPT/HCPCS: 81001; 81025; 82962; 87086; 96372; 99283; J3490; Q9967; J0696; J1815